=== PATIENT | male | born 1950 | race Caucasian/White ===

== ENCOUNTER 2016-08-07 17:17 | Inpatient (IN) | payer MEDICARE, OTHER ==
[~2016-08-07] VITALS: Ht 167.6 cm; Wt 65.0 kg
[2016-08-07 17:44] LABS: ADD SCAN DIFF NO
[2016-08-07 17:53] LABS: ABNORMAL IP MESSAGE 1; HEMATOCRIT 14.1 % (42.0-52.0); MEAN CORPUSCULAR HEMOGLOBIN 28.9 pg (29.0-33.0); MEAN CORPUSCULAR HGB CONC 29.1 g/dl (32.0-37.0); MEAN CORPUSCULAR VOLUME 99.3 fl (82.0-101.0); MEAN PLATELET VOLUME 10.9 fl (7.4-10.4); PLATELET COUNT 495 10^3/UL (140-415); RED BLOOD COUNT 1.42 10^6/ul (4.70-6.10); RED CELL DISTRIBUTION WIDTH 16.4 % (11.5-14.5); WHITE BLOOD COUNT 15.6 10^3/ul (4.8-10.8)
[2016-08-07 17:56] LABS: HEMOGLOBIN 4.1 g/dl (14.0-18.0)
[2016-08-07] MEDS ORDERED: SOD CHLORIDE 0.9% 250 ML IV ONE (17:56)
[2016-08-07 18:02] LABS: ALBUMIN 2.6 g/dl (3.3-4.9); CHLORIDE 107 mmol/L (97-110); INR 1.3; PROTIME 16.3 Sec (12.2-14.2); PT RATIO 1.3; SODIUM 139 mmol/L (135-144)
[2016-08-07 18:05] LABS: ALANINE AMINOTRANSFERASE 32 IU/L (13-69); ALBUMIN/GLOBULIN RATIO 1.44; ALKALINE PHOSPHATASE 46 IU/L (42-121); ANION GAP 21 (8-16); ASPARTATE AMINO TRANSFERASE 19 IU/L (15-46); BILIRUBIN,INDIRECT 0.2 mg/dl (0-1.1); BILIRUBIN,TOTAL 0.2 mg/dl (0.2-1.3); BLOOD UREA NITROGEN 38 mg/dl (7-20); CARBON DIOXIDE 15 mmol/L (21-31); CREATININE 1.05 mg/dl (0.61-1.24); TOTAL PROTEIN 4.4 g/dl (6.1-8.1)
[2016-08-07 18:06] LABS: CALCIUM 8.4 mg/dl (8.4-10.2); GLUCOSE 267 mg/dl (70-220)
[2016-08-07] MEDS ORDERED: ASPI325T4 PO (18:08)
[2016-08-07 18:20] LABS: TROPONIN-I < 0.012 ng/ml (0.00-0.12)
--- NOTE | 2016-08-07 18:27 | RADRPT ---
PROCEDURE: XR Chest. CLINICAL INDICATION: Difficulty breathing, possible sepsis TECHNIQUE: Single frontal view of the chest was obtained COMPARISON: None FINDINGS: The heart and mediastinum are within normal limits. The lungs are clear. There is no pleural effusion or pneumothorax. IMPRESSION: No acute abnormalities are identified on this single view. RPTAT:AAJJ Arie Neumann Physician Date Time Electronically viewed and signed by Arie Neumann Physician on 08/07/2016 18:26 /
[2016-08-07 18:31] LABS: LYMPHOCYTES # 0.8 10^3/ul (0.8-2.9); MONOCYTE # 0.3 10^3/ul (0.3-0.9); NEUTROPHIL # 14.4 10^3/ul (1.6-7.5); PARTIAL THROMBOPLASTIN TIME 21.5 Sec (25.0-35.0)
[2016-08-07 18:33] LABS: ANISOCYTOSIS 1+
[2016-08-07 18:34] LABS: BURR CELLS 2+; HYPOCHROMASIA 2+; MICROCYTOSIS 1+; OVALOCYTES 1+; PLATELET ESTIMATE PLT APPEAR INCREASED; POIKILOCYTOSIS 2+
[2016-08-07] MEDS ORDERED: OCTREOTIDE 500 MCG in SOD CHLORIDE 0.9% 49 ML IV STA (19:41)
[2016-08-07] MEDS ORDERED: OCTREOTIDE 50 MCG in SOD CHLORIDE 0.9% 25 ML IVPB STA (19:41)
[2016-08-07] MEDS ORDERED: PANTOPRAZOLE 40 MG INJ IV ONE (20:00)
--- NOTE | 2016-08-07 20:52 | ERA ---
ER Documentation Chief Complaint Date/Time DATE: 08/07/16 TIME: 20:47 Chief Complaint SOB FOR THE PAST FEW DAYS WITH BLACK STOOLS. GETTING WORSE. NO CP HPI This is a 65-year-old male who presents to the emergency room for evaluation of generalized weakness and dark stools of this after the past few weeks. This patient states that he has been feeling weak and he has been taking aspirin to help him feel better. The patient states that today he was feeling extremely weak and could not move. He did call 911 was transported to the emergency room for further evaluation. This patient is denying any chest pain but does state he is a short of breath. The patient states that he has not taken any other medicine except for aspirin at home. ROS All systems reviewed and are negative except as per history of present illness. Medications Home Meds Reported Medications Aspirin* (Aspirin*) 325 Mg Tablet, 325 MG PO NEEDED, TAB 08/07/16 Allergies Allergies: Coded Allergies: No Known Allergy (Unverified , 08/07/16) Physical Exam Vitals Vital Signs Date Time Temp Pulse Resp B/P Pulse Ox O2 Delivery O2 Flow Rate FiO2 08/07/16 19:05 97.9 113 20 98/55 97 Non Rebreather 15.0 08/07/16 18:16 113 20 109/56 Non Rebreather 15.0 08/07/16 17:57 Non Rebreather 15 08/07/16 17:50 97.5 118 20 77/55 97 08/07/16 17:40 97.8 113 20 102/66 Non Rebreather 15.0 08/07/16 17:25 116 20 89/55 Non Rebreather 15.0 Physical Exam INITIAL VITAL SIGNS: Reviewed by me GENERAL: The patient is frail-appearing, extremely pale elderly gentleman HEENT: Conjunctival pallor pupils equal, round, and reactive to light. EOMI. There is no scleral icterus. NECK: C-spine is soft and supple, there is no meningismus. There is no cervical lymphadenopathy. LUNGS: Clear to auscultation bilaterally. There are no rales, wheezes or rhonchi. HEART: Tachycardic, no murmurs, clicks, rubs or gallops. ABDOMEN: Soft, non-tender, non-distended. There are bowel sounds in all four quadrants. No rebound or guarding. EXTREMITIES: There is no peripheral cyanosis or edema. No focal swelling or erythema. NEUROLOGICAL: The patient moves all four extremities with 5/5 strength. Cranial nerves II - XII are intact. Normal gait. Alert and oriented SKIN: Extremely pale skin, there is no apparent rash or petechiae. HEME/LYMPHATIC: There is no evidence of excessive bruising or lymphedema. PSYCHIATRIC: The patient does not appear anxious or depressed. Rectal exam: Dark stool, heme positive Result Diagram: 08/07/16172908/07/161729 Results 24 hrs Laboratory Tests Test 08/07/16 17:30 White Blood Count 15.610^3/ul Red Blood Count 1.4210^6/ul Hemoglobin 4.1g/dl Hematocrit 14.1% Mean Corpuscular Volume 99.3fl Mean Corpuscular Hemoglobin 28.9pg Mean Corpuscular Hemoglobin Concent 29.1g/dl Red Cell Distribution Width 16.4% Platelet Count 87628^3/UL Mean Platelet Volume 10.9fl Neutrophils % 92.0% Band Neutrophils % 1.0% Lymphocytes % 5.0% Monocytes % 2.0% Neutrophils # 14.410^3/ul Lymphocytes # 0.810^3/ul Monocytes # 0.310^3/ul Platelet Estimate PLT APPEAR INCREASED Large Platelets FEW Hypochromasia 2+ Poikilocytosis 2+ Anisocytosis 1+ Microcytosis 1+ Macrocytosis 1+ Ovalocytes 1+ Prothrombin Time 16.3Sec Prothrombin Time Ratio 1.3 INR International Normalized Ratio 1.30 Activated Partial Thromboplast Time 21.5Sec Sodium Level 139mmol/L Potassium Level 4.0mmol/L Chloride Level 107mmol/L Carbon Dioxide Level 15mmol/L Anion Gap 21 Blood Urea Nitrogen 38mg/dl Creatinine 1.05mg/dl Glucose Level 267mg/dl Lactic Acid Level 9.5mmol/L Calcium Level 8.4mg/dl Total Bilirubin 0.2mg/dl Direct Bilirubin 0.00mg/dl Indirect Bilirubin 0.2mg/dl Aspartate Amino Transf (AST/SGOT) 19IU/L Alanine Aminotransferase (ALT/SGPT) 32IU/L Alkaline Phosphatase 46IU/L Troponin I < 0.012ng/ml Total Protein 4.4g/dl Albumin 2.6g/dl Globulin 1.80g/dl Albumin/Globulin Ratio 1.44 Current Medications Medications (Trade) Dose Ordered Sig/Breanna Route PRN Reason Start Time Stop Time Status Last Admin Dose Admin Sodium Chloride (NS) 250 ml @ 0 mls/hr Q0M ONCE IV 08/07/16 17:56 08/07/16 17:57 DC Pantoprazole 80 mg 80 mg ONCE ONCE IV 08/07/16 20:00 08/07/16 20:01 DC 08/07/16 20:06 Octreotide Acetate 50 mcg/ Sodium Chloride 26 ml @ 100 mls/hr Q16M STAT IVPB 08/07/16 19:41 08/07/16 19:56 DC 08/07/16 20:38 Octreotide Acetate/Sodium Chloride (Sandostatin/NS) 50 ml @ 5 mls/hr ONCE STAT IV 08/07/16 19:41 08/08/16 05:40 08/07/16 20:37 Procedures/MDM EKG: Rate/Rhythm: Sinus tachycardia QRS, ST, T-waves: [No changes consistent w/ acute ischemia] Impression: [No evidence of ischemia or arrhythmia] Chest X-ray 1V Interpreted by me: Soft Tissue: No acute abnormalities Bones: No acute abnormalities Mediastinum/Cardiac Silhouette/Lungs: [No acute abnormalities] This 65-year-old male presents to the emergency room for evaluation of generalized weakness. When I evaluated this patient he was extremely pale, tachycardic, and was in mild respiratory distress. We immediately established to large-bore IVs in this patient in to lab work including a type and screen. This patient's hemoglobin came back at 4.1 and on his rectal exam this patient did have dark stool which was heme positive. This patient also had a lactic acid greater than 9. The patient has not been hypotensive. He was given 2 L of IV normal saline immediately. The patient was transfused 4 units of packed red blood cells in the emergency room. He was given 40 mg of Protonix, and was started on a octreotide drip after an octreotide bolus was given. Upon my re- evaluation of this patient after 2 units of blood this patient's skin color has returned, his heart rate is 84 bpm and he states he is feeling much better. This patient will be placed in the ICU at this time under the care of her panel physician, Dr. fletcher for evaluation with GI consult. I advised the patient that his aspirin is likely contributing to his symptoms and advised him to never take aspirin if he has dark stools and he verbalized understanding. Critical Care: Excluding all billable procedures Time: 38 minutes Treatments/Evaluations: Close monitoring and treatment of unstable vital signs, cardiorespiratory, and neurologic status, while maintaining tight balance of fluid, respiratory, and cardiac interventions. Departure Diagnosis: Primary Impression: GI bleed Additional Impressions: Symptomatic anemia Lactic acidosis Shortness of breath Condition: Critical HERMANN WHITEHEAD DO August 07, 2016 20:52
[2016-08-07] MEDS ORDERED: INSULIN ASPART [NOVOLOG] 3 ML PEN SC STA (21:16)
[2016-08-07] MEDS ORDERED: ONDANSETRON 4 MG INJ IV PRN (21:30)
--- NOTE | 2016-08-07 21:57 | HP ---
Date/Time of Note Date/Time of Note DATE: 08/07/16 TIME: 21:36 Assessment/Plan Assessment/Plan Assessment/Plan 1. GI Bleed - admit to ICU - Protonix/Octreotide gtt - blood transfusion - GI consult 2. Mild DKA - insulin with DKA protocol 3. AG Metabolic Acidosis - check ABG 4. Severe Lactic Acidosis - IVF - Trend lactate HPI/ROS Admit Date/Time Admit Date/Time Hx of Present Illness This is a 65 yo male who presented to ER c/o generalized weakness that has been progressively getting worse for past few days. Also reported dizziness/ lightheadedness. In ER, he was found to have a hgb of 4. He reported dark stool. Denied hematemesis or BRBPR. BP was as low as 77/55 and was tachycardic. Lab also showed a lactate of 9.5, hco3 15, BUN 38, glu 267, AG 21. . Exam/Review of Systems Vital Signs Vitals Vital Signs Date Time Temp Pulse Resp B/P Pulse Ox O2 Delivery O2 Flow Rate FiO2 08/07/16 20:20 98.1 95 19 132/74 100 Nasal Cannula 4.0 Labs Result Diagram: 08/07/16 1730 08/07/16 1730 Medications Medications Current Medications Pantoprazole 80 mg/Sodium Chloride 100 ml @ 10 mls/hr Q10H IV ; Start 08/07/16 at 21:07; Status UNV Octreotide Acetate/Sodium Chloride (Sandostatin/NS) 50 ml @ 2.5 mls/hr Q20H IV ; Start 08/07/16 at 21:07; Status UNV Ondansetron HCl (Zofran Inj) 4 mg Q6 PRN IV N/V; Start 08/07/16 at 21:30; Status UNV Insulin Aspart (Novolog Insulin Pen) NOVOLOG *MODERATE* ALGORI... Q4 SC ; Start 08/08/16 at 01:00; Status UNV Miscellaneous Information HYPOGLYCEMIA PROTOCOL w... ONCE ONCE XX ; Start 08/07 at 21:30; Stop 08/07/16 at 21:31; Status UNV Sodium Chloride (NS) 1,000 ml @ 125 mls/hr Q8H IV ; Start 08/07/16 at 22:00; Status UNV MARCELL HARVEY MD August 07, 2016 21:46
[2016-08-07] MEDS ORDERED: GLUCAGON 1 MG INJ IM PRN (22:00)
[2016-08-07] MEDS ORDERED: DEXTROSE 50% 50 ML SYRINGE IV PRN ×2 (22:00)
[2016-08-07] MEDS ORDERED: GLUCOSE GEL 15 GRAM TUBE BUCCAL PRN (22:00)
[2016-08-07] MEDS ORDERED: GLUCOSE GEL 15 GRAM TUBE PO PRN ×2 (22:00)
[2016-08-07 22:16] LABS: Allen Test ACCEPTAB; Arterial Base Excess -3.5 mmol/L (-3.0-3); Arterial COHb 0.3 % (0.0-3.0); Arterial Fraction of Oxyhgb 97.4 % (93.0-99.0); Arterial HCO3 20.4 mmol/L (22.0-26.0); Arterial MetHb 0.6 % (0.0-1.5); Arterial Total Hemglobin 8.9 g/dl (12.0-18.0); MODE CANNULA
[2016-08-07] MEDS: OCTREOTIDE 500 MCG in SOD CHLORIDE 0.9% 49 ML IV SCH (22:49)
[2016-08-07] MEDS: PANTOPRAZOLE IV 80 MG in SOD CHLORIDE 0.9% 100 ML IV SCH (22:52)
[2016-08-07] MEDS: SOD CHLORIDE 0.9% 1,000 ML IV SCH (22:57)
[2016-08-07] MEDS: INSULIN ASPART [NOVOLOG] 3 ML PEN SC SCH (23:12)
[2016-08-07 23:30] LABS: HEMOGLOBIN 8.5 g/dl (14.0-18.0)
[2016-08-08] VITALS (11 sets, daily range): BP systolic 111–127; BP diastolic 59–69; PULSE 59–93; RESP 16–20; TEMP 98.6; Ht 167.6 cm; Wt 65.0 kg
[2016-08-08] MEDS: INSULIN ASPART [NOVOLOG] 3 ML PEN SC SCH ×6 (01:00→21:00)
[2016-08-08 02:50] LABS: ADD SCAN DIFF NO
[2016-08-08 02:53] LABS: ABNORMAL IP MESSAGE 1; BASOPHILS % 0.1 % (0.0-2.0); HEMATOCRIT 31.6 % (42.0-52.0); HEMOGLOBIN 10.4 g/dl (14.0-18.0); LYMPHOCYTES % 4.9 % (15.0-51.0); MEAN CORPUSCULAR HEMOGLOBIN 29.7 pg (29.0-33.0); MEAN CORPUSCULAR HGB CONC 32.9 g/dl (32.0-37.0); MEAN CORPUSCULAR VOLUME 90.3 fl (82.0-101.0); MEAN PLATELET VOLUME 10.6 fl (7.4-10.4); MONOCYTE # 1.8 10^3/ul (0.3-0.9); MONOCYTES % 8.7 % (0.0-11.0); NEUTROPHIL # 17.9 10^3/ul (1.6-7.5); NEUTROPHILS % 84.7 % (39.0-77.0); NUCLEATED RED BLOOD CELLS # 0.1 10^3/ul (0.0-0.0); NUCLEATED RED BLOOD CELLS% 0.3 /100WBC (0.0-0.0); PLATELET COUNT 298 10^3/UL (140-415); RED CELL DISTRIBUTION WIDTH 14.9 % (11.5-14.5); WHITE BLOOD COUNT 21.2 10^3/ul (4.8-10.8)
[2016-08-08] MEDS: SOD CHLORIDE 0.9% 1,000 ML IV SCH ×4 (06:11→23:17)
[2016-08-08] MEDS: PANTOPRAZOLE IV 80 MG in SOD CHLORIDE 0.9% 100 ML IV SCH ×2 (06:12→17:18)
[2016-08-08 08:14] LABS: ADD SCAN DIFF NO
[2016-08-08 08:21] LABS: BASOPHILS % 0.2 % (0.0-2.0); EOSINOPHILS % 0.1 % (0.0-7.0); HEMATOCRIT 25.9 % (42.0-52.0); HEMOGLOBIN 8.9 g/dl (14.0-18.0); LYMPHOCYTES % 5.8 % (15.0-51.0); MEAN CORPUSCULAR HEMOGLOBIN 30.2 pg (29.0-33.0); MEAN CORPUSCULAR HGB CONC 34.4 g/dl (32.0-37.0); MEAN CORPUSCULAR VOLUME 87.8 fl (82.0-101.0); MEAN PLATELET VOLUME 10.1 fl (7.4-10.4); MONOCYTE # 1.5 10^3/ul (0.3-0.9); MONOCYTES % 8.4 % (0.0-11.0); NEUTROPHIL # 14.6 10^3/ul (1.6-7.5); NEUTROPHILS % 83.9 % (39.0-77.0); NUCLEATED RED BLOOD CELLS% 0.2 /100WBC (0.0-0.0); PLATELET COUNT 319 10^3/UL (140-415); RED BLOOD COUNT 2.95 10^6/ul (4.70-6.10); RED CELL DISTRIBUTION WIDTH 15.2 % (11.5-14.5); WHITE BLOOD COUNT 17.4 10^3/ul (4.8-10.8)
[2016-08-08 08:39] LABS: ALBUMIN 2.2 g/dl (3.3-4.9)
[2016-08-08 08:40] LABS: POTASSIUM 4.1 mmol/L (3.5-5.1)
[2016-08-08 08:42] LABS: ALBUMIN/GLOBULIN RATIO 1.15; BILIRUBIN,INDIRECT 0.8 mg/dl (0-1.1); BILIRUBIN,TOTAL 0.8 mg/dl (0.2-1.3); CREATININE 0.91 mg/dl (0.61-1.24); TOTAL PROTEIN 4.1 g/dl (6.1-8.1)
[2016-08-08 08:43] LABS: CALCIUM 7.2 mg/dl (8.4-10.2)
[2016-08-08] MEDS: OCTREOTIDE 500 MCG in SOD CHLORIDE 0.9% 49 ML IV SCH (17:18)
--- NOTE | 2016-08-08 17:20 | PN ---
Date/Time of Note Date/Time of Note DATE: 08/08/16 TIME: 17:16 Assessment/Plan VTE Prophylaxis VTE Prophylaxis Intervention: contraindicated VTE Contraindication Reason: bleeding Lines/Catheters IV Catheter Type (from Nrsg): Peripheral IV Urinary Cath still in place: Yes Reason Cath still needed: other (indicate) Assessment/Plan Chief Complaint/Hosp Course Subjective: 65-year-old gentleman with black stools for maybe 3 weeks. Takes aspirin long-term for generalized pain denies alcohol. No syncope. No hematuria hematemesis abdominal pain or weight loss. Objective: Vital signs stable improved sinus rhythm sinus tach PE No adenopathy JVD probable pallor Reg, no m/r/g Clear bilaterally Bs+ nt nd no R/R/G No edema A/P 1. Shock. Hypovolemic/hemorrhagic? Stable transfused. Follow H&H 2. Acute GI bleed probable upper. EGD when stable; colonoscopy at some point 3. Metabolic acidosis 4. Hypoalbuminemia? Problems: Exam/Review of Systems Vital Signs Vitals Vital Signs Date Time Temp Pulse Resp B/P Pulse Ox O2 Delivery O2 Flow Rate FiO2 08/08/16 16:23 67 08/08/16 16:14 98.8 18 118/69 99 08/08/16 03:50 Room Air 08/08/16 02:55 2.0 08/07/16 21:00 28 Intake and Output 08/07/16 08/07/16 08/08/16 15:00 23:00 07:00 Intake Total 2520 ml Output Total 400 ml Balance 2120 ml Results Result Diagram: 08/08/16 0655 08/08/16 0655 Results 24 hrs Laboratory Tests Test 08/07/16 17:30 08/07/16 20:00 08/07/16 20:30 08/07/16 21:18 White Blood Count 15.6 H Red Blood Count 1.42 L Hemoglobin 4.1 *L Hematocrit 14.1 L Mean Corpuscular Volume 99.3 Mean Corpuscular Hemoglobin 28.9 L Mean Corpuscular Hemoglobin Concent 29.1 L Red Cell Distribution Width 16.4 H Platelet Count 495 H Mean Platelet Volume 10.9 H Neutrophils % 92.0 H Band Neutrophils % 1.0 Lymphocytes % 5.0 L Monocytes % 2.0 Neutrophils # 14.4 H Lymphocytes # 0.8 Monocytes # 0.3 Platelet Estimate PLT APPEAR INCREASED Large Platelets FEW Hypochromasia 2+ Poikilocytosis 2+ Anisocytosis 1+ Microcytosis 1+ Macrocytosis 1+ Ovalocytes 1+ Prothrombin Time 16.3 H Prothrombin Time Ratio 1.3 INR International Normalized Ratio 1.30 Activated Partial Thromboplast Time 21.5 L Sodium Level 139 Potassium Level 4.0 Chloride Level 107 Carbon Dioxide Level 15 L Anion Gap 21 H Blood Urea Nitrogen 38 H Creatinine 1.05 Glucose Level 267 H Lactic Acid Level 9.5 *H 2.3 H Calcium Level 8.4 Total Bilirubin 0.2 Direct Bilirubin 0.00 Indirect Bilirubin 0.2 Aspartate Amino Transf (AST/SGOT) 19 Alanine Aminotransferase (ALT/SGPT) 32 Alkaline Phosphatase 46 Troponin I < 0.012 Total Protein 4.4 L Albumin 2.6 L Globulin 1.80 Albumin/Globulin Ratio 1.44 Salicylates Level 2.6 L Blood Gas Specimen Source Blood arterial Arterial Blood Date Drawn 08/07/2016 10:06:44 PM Arterial Blood pH (Temp corrected) 7.422 Arterial Blood pCO2 (Temp correct) 32.0 L Arterial Blood pO2 (Temp corrected) 164.5 H Arterial Blood HCO3 20.4 L Arterial Blood Base Excess -3.5 L Arterial Blood Oxygen Saturation 98.3 H Fredrick Test ACCEPTAB Arterial Blood Gas Puncture Site Left Radial Arterial Blood Carboxyhemoglobin 0.3 Arterial Blood Methemoglobin 0.6 Oxyhemoglobin Percent 97.4 Total Hemoglobin 8.9 L Blood Gas Temperature 37.0 Blood Gas Actual Respiration Rate 16 Blood Gas Modality CANNULA FiO2 28.0 Blood Gas Critical Value Read Back Ana Laura LARA Blood Gas Notified Whom BL Blood Gas Notified Time 08/07/2016 10:15:26 PM Test 08/07/16 22:30 08/07/16 23:08 08/07/16 23:10 08/08/16 01:28 Hemoglobin 8.5 #L Hematocrit 26.0 #L Bedside Glucose 119 126 Lactic Acid Level 1.1 Test 08/08/16 02:37 08/08/16 05:05 08/08/16 06:55 08/08/16 09:20 White Blood Count 21.2 #H 17.4 H Red Blood Count 3.50 #L 2.95 L Hemoglobin 10.4 #L 8.9 L Hematocrit 31.6 #L 25.9 L Mean Corpuscular Volume 90.3 87.8 Mean Corpuscular Hemoglobin 29.7 30.2 Mean Corpuscular Hemoglobin Concent 32.9 34.4 Red Cell Distribution Width 14.9 H 15.2 H Platelet Count 298 # 319 Mean Platelet Volume 10.6 H 10.1 Neutrophils % 84.7 H 83.9 H Lymphocytes % 4.9 L 5.8 L Monocytes % 8.7 8.4 Eosinophils % 0.0 0.1 Basophils % 0.1 0.2 Nucleated Red Blood Cells % 0.3 H 0.2 H Neutrophils # 17.9 H 14.6 H Lymphocytes # 1.0 1.0 Monocytes # 1.8 H 1.5 H Eosinophils # 0.0 0.0 Basophils # 0.0 0.0 Nucleated Red Blood Cells # 0.1 H 0.0 Bedside Glucose 111 130 Sodium Level 139 Potassium Level 4.1 Chloride Level 113 H Carbon Dioxide Level 21 Anion Gap 9 # Blood Urea Nitrogen 32 H Creatinine 0.91 Glucose Level 108 # Hemoglobin A1c 4.9 Calcium Level 7.2 L Total Bilirubin 0.8 Direct Bilirubin 0.00 Indirect Bilirubin 0.8 Aspartate Amino Transf (AST/SGOT) 21 Alanine Aminotransferase (ALT/SGPT) 37 Alkaline Phosphatase 43 Total Protein 4.1 L Albumin 2.2 L Globulin 1.90 Albumin/Globulin Ratio 1.15 Test 08/08/16 13:30 Bedside Glucose 120 Medications Medications Current Medications Pantoprazole 80 mg/Sodium Chloride 100 ml @ 10 mls/hr Q10H IV Last administered on 08/08/16 06:12; Admin Dose 10 MLS/HR; Start 08/07/16 at 21:07 Octreotide Acetate/Sodium Chloride (Sandostatin/NS) 50 ml @ 2.5 mls/hr Q20H IV Last administered on 08/07/16 22:49; Admin Dose 2.5 MLS/HR; Start 08/07/16 at 21:07 Ondansetron HCl (Zofran Inj) 4 mg Q6 PRN IV N/V; Start 08/07/16 at 21:30 Insulin Aspart NOVOLOG *MODERATE* ALGORI... Q4 SC ; Start 08/08/16 at 01:00 Sodium Chloride (NS) 1,000 ml @ 100 mls/hr Q10H IV Last administered on 5/13/ 17at 06:11; Admin Dose 125 MLS/HR; Start 08/07/16 at 22:00 Miscellaneous Information 1 ea NOTE XX ; Start 08/07/16 at 22:00 Glucose (Glutose) 15 gm Q15M PRN PO DECREASED GLUCOSE; Start 08/07/16 at 22:00 Glucose (Glutose) 22.5 gm Q15M PRN PO DECREASED GLUCOSE; Start 08/07/16 at 22: 00 Dextrose (D50w Syringe) 25 ml Q15M PRN IV DECREASED GLUCOSE; Start 08/07/16 at 22:00 Dextrose (D50w Syringe) 50 ml Q15M PRN IV DECREASED GLUCOSE; Start 08/07/16 at 22:00 Glucagon (Glucagen) 1 mg Q15M PRN IM DECREASED GLUCOSE; Start 08/07/16 at 22:00 Glucose (Glutose) 15 gm Q15M PRN BUCCAL DECREASED GLUCOSE; Start 08/07/16 at 22 :00 CARLOS MEMBRENO MD August 08, 2016 17:20
[2016-08-08 21:15] LABS: HEMATOCRIT 24.7 % (42.0-52.0); HEMOGLOBIN 8.1 g/dl (14.0-18.0)
[2016-08-09] VITALS (12 sets, daily range): BP systolic 108–137; BP diastolic 59–78; PULSE 65–84; RESP 16–20
[2016-08-09] MEDS: INSULIN ASPART [NOVOLOG] 3 ML PEN SC SCH ×6 (01:00→21:00)
[2016-08-09] MEDS: PANTOPRAZOLE IV 80 MG in SOD CHLORIDE 0.9% 100 ML IV SCH ×3 (03:30→23:36)
[2016-08-09] MEDS: SOD CHLORIDE 0.9% 1,000 ML IV SCH ×2 (05:38→23:35)
[2016-08-09 07:32] LABS: ADD SCAN DIFF NO
[2016-08-09 07:39] LABS: BASOPHILS % 0.2 % (0.0-2.0); EOSINOPHILS # 0.1 10^3/ul (0.0-0.5); EOSINOPHILS % 0.4 % (0.0-7.0); HEMATOCRIT 25.5 % (42.0-52.0); HEMOGLOBIN 8.6 g/dl (14.0-18.0); LYMPHOCYTES # 0.8 10^3/ul (0.8-2.9); LYMPHOCYTES % 5.6 % (15.0-51.0); MEAN CORPUSCULAR HEMOGLOBIN 30.6 pg (29.0-33.0); MEAN CORPUSCULAR HGB CONC 33.7 g/dl (32.0-37.0); MEAN CORPUSCULAR VOLUME 90.7 fl (82.0-101.0); MEAN PLATELET VOLUME 10.2 fl (7.4-10.4); MONOCYTE # 1.1 10^3/ul (0.3-0.9); MONOCYTES % 7.5 % (0.0-11.0); NEUTROPHIL # 12.2 10^3/ul (1.6-7.5); NEUTROPHILS % 85.4 % (39.0-77.0); PLATELET COUNT 277 10^3/UL (140-415); RED BLOOD COUNT 2.81 10^6/ul (4.70-6.10); RED CELL DISTRIBUTION WIDTH 15.8 % (11.5-14.5); WHITE BLOOD COUNT 14.3 10^3/ul (4.8-10.8)
[2016-08-09 07:56] LABS: ALBUMIN 2.4 g/dl (3.3-4.9); ALBUMIN/GLOBULIN RATIO 1.14; BILIRUBIN,INDIRECT 0.4 mg/dl (0-1.1); BILIRUBIN,TOTAL 0.4 mg/dl (0.2-1.3); CALCIUM 7.4 mg/dl (8.4-10.2); CREATININE 0.83 mg/dl (0.61-1.24); PHOSPHORUS 3.2 mg/dl (2.5-4.9); POTASSIUM 4.3 mmol/L (3.5-5.1); TOTAL PROTEIN 4.5 g/dl (6.1-8.1)
[2016-08-09 08:02] LABS: INR 1.14; PROTIME 14.6 Sec (12.2-14.2); PT RATIO 1.1
[2016-08-09 08:25] LABS: THYROID STIMULATING HORMONE 0.83 MIU/L (0.465-4.680)
[2016-08-09] MEDS ORDERED: BARIUM SULF 2% 450 ML BTL (BERRY SMOOTHIE) PO ONE (13:00)
--- NOTE | 2016-08-09 13:20 | CONS ---
Date/Time of Note Date/Time of Note DATE: 08/09/16 TIME: 13:09 Assessment/Plan Assessment/Plan Additional Assessment/Plan Acute anemia Evaluate GI bleed versus chronic iron deficiency vs other etiology Stool OB, if positive strongly recommend EGD Monitor H&H every 8 hours, transfuse 2 units for hemoglobin less than 7.[address] abdomen in process Continue PPI and Octreotide drips EGD tomorrow with Dr. Hewitt, pt advised of R/B/A to procedure and provide informed consent to proceed Further recommendations depend on clinical course Patient seen in collaboration with Dr. Hewitt Consultation Date/Type/Reason Admit Date/Time Date of Consultation: August 09, 2016 Type of Consultation: Gastroenterology Reason for Consultation Acute anemia Hx of Present Illness Mr. Jose J Frye is a 65-year-old male who presented to the emergency room secondary to worsening weakness and melena stools. Patient states symptoms started 5-6 days ago and have progressively gotten worse. Patient denies nausea , vomiting, fever, chills, hematochezia, sick contacts, travel outside the [place], and previous episode. Patient denies any significant medical history. Patient reports chronic Tylenol use for everyday aches and pains but states he uses it on a as needed basis. Patient has never had colonoscopy and denies family history of colon cancer or colon polyps. Social History Smoking Status: Former smoker Exam/Review of Systems Vital Signs Vitals Vital Signs Date Time Temp Pulse Resp B/P Pulse Ox O2 Delivery O2 Flow Rate FiO2 08/09/16 12:11 84 08/09/16 12:01 98.9 17 108/61 99 08/08/16 03:50 Room Air 08/08/16 02:55 2.0 08/07/16 21:00 28 Intake and Output 08/08/16 08/08/16 08/09/16 15:00 23:00 07:00 Intake Total 1835 ml 1215 ml Output Total 850 ml 800 ml Balance 985 ml 415 ml Exam Constitutional: alert, oriented, well developed Psych: nl mood/affect Head: normocephalic Eyes: EOMI, nl conjunctiva, nl lids ENMT: nl external ears & nose, nl lips & teeth, nl nasal mucosa & septum Respiratory: clear to auscultation, normal air movement Cardiovascular: regular rate and rhythm Gastrointestinal: soft, non-tender Musculoskeletal: nl extremities to inspection Neurological: [employer] ADMINISTRATOR II-XII intact Results Result Diagram: 08/09/16 0706 08/09/16 0706 Results 24 hrs Laboratory Tests Test 08/08/16 13:30 08/08/16 20:45 08/08/16 21:24 08/09/16 01:17 Bedside Glucose 120 104 112 Hemoglobin 8.1 L Hematocrit 24.7 L Test 08/09/16 05:37 08/09/16 07:06 08/09/16 08:29 Bedside Glucose 105 112 White Blood Count 14.3 H Red Blood Count 2.81 L Hemoglobin 8.6 L Hematocrit 25.5 L Mean Corpuscular Volume 90.7 Mean Corpuscular Hemoglobin 30.6 Mean Corpuscular Hemoglobin Concent 33.7 Red Cell Distribution Width 15.8 H Platelet Count 277 Mean Platelet Volume 10.2 Neutrophils % 85.4 H Lymphocytes % 5.6 L Monocytes % 7.5 Eosinophils % 0.4 Basophils % 0.2 Nucleated Red Blood Cells % 0.0 Neutrophils # 12.2 H Lymphocytes # 0.8 Monocytes # 1.1 H Eosinophils # 0.1 Basophils # 0.0 Nucleated Red Blood Cells # 0.0 Prothrombin Time 14.6 H Prothrombin Time Ratio 1.1 INR International Normalized Ratio 1.14 Sodium Level 135 Potassium Level 4.3 Chloride Level 112 H Carbon Dioxide Level 23 Anion Gap 4 L Blood Urea Nitrogen 15 # Creatinine 0.83 Glucose Level 112 Calcium Level 7.4 L Phosphorus Level 3.2 Magnesium Level 2.0 Total Bilirubin 0.4 Direct Bilirubin 0.00 Indirect Bilirubin 0.4 Aspartate Amino Transf (AST/SGOT) 19 Alanine Aminotransferase (ALT/SGPT) 37 Alkaline Phosphatase 52 Total Protein 4.5 L Albumin 2.4 L Globulin 2.10 Albumin/Globulin Ratio 1.14 Lipase 321 H Thyroid Stimulating Hormone (TSH) 0.830 Medications Medications Current Medications Pantoprazole 80 mg/Sodium Chloride 100 ml @ 10 mls/hr Q10H IV Last administered on 08/09/16 03:30; Admin Dose 10 MLS/HR; Start 08/07/16 at 21:07 Octreotide Acetate/Sodium Chloride (Sandostatin/NS) 50 ml @ 2.5 mls/hr Q20H IV Last administered on 08/08/16 17:18; Admin Dose 2.5 MLS/HR; Start 08/07/16 at 21:07 Ondansetron HCl (Zofran Inj) 4 mg Q6 PRN IV N/V; Start 08/07/16 at 21:30 Insulin Aspart NOVOLOG *MODERATE* ALGORI... Q4 SC ; Start 08/08/16 at 01:00 Sodium Chloride (NS) 1,000 ml @ 100 mls/hr Q10H IV Last administered on t 05:38; Admin Dose 100 MLS/HR; Start 08/07/16 at 22:00 Miscellaneous Information 1 ea NOTE XX ; Start 08/07/16 at 22:00 Glucose (Glutose) 15 gm Q15M PRN PO DECREASED GLUCOSE; Start 08/07/16 at 22:00 Glucose (Glutose) 22.5 gm Q15M PRN PO DECREASED GLUCOSE; Start 08/07/16 at 22: 00 Dextrose (D50w Syringe) 25 ml Q15M PRN IV DECREASED GLUCOSE; Start 08/07/16 at 22:00 Dextrose (D50w Syringe) 50 ml Q15M PRN IV DECREASED GLUCOSE; Start 08/07/16 at 22:00 Glucagon (Glucagen) 1 mg Q15M PRN IM DECREASED GLUCOSE; Start 08/07/16 at 22:00 Glucose (Glutose) 15 gm Q15M PRN BUCCAL DECREASED GLUCOSE; Start 08/07/16 at 22 :00 GREGORY GRIGSBY August 09, 2016 13:19
[2016-08-09] MEDS: OCTREOTIDE 500 MCG in SOD CHLORIDE 0.9% 49 ML IV SCH (13:25)
--- NOTE | 2016-08-09 15:52 | PN ---
Date/Time of Note Date/Time of Note DATE: 08/09/16 TIME: 15:50 Assessment/Plan VTE Prophylaxis VTE Prophylaxis Intervention: contraindicated VTE Contraindication Reason: bleeding Lines/Catheters IV Catheter Type (from Nrsg): Peripheral IV Urinary Cath still in place: Yes Reason Cath still needed: urinary retention Assessment/Plan Chief Complaint/Hosp Course S: 08/08:65-yr M w black stools for maybe 3 wks. On asa long-term for pain; denies alcohol. No syncope. No hematuria hematemesis abd pain or wt loss. 08/09: stable O: Vss SR PE No JVD; probable pallor Reg, no m/r/g Ctab Bs+ nt nd no R/R/G No edema A/P 1. Shock. Hypovolemic/hemorrhagic? Stable transfused. Follow H&H 2. Acute GI bleed probable upper. EGD 08/10; colonoscopy at some point 3. Metabolic acidosis 4. Hypoalbuminemia? Problems: Exam/Review of Systems Vital Signs Vitals Vital Signs Date Time Temp Pulse Resp B/P Pulse Ox O2 Delivery O2 Flow Rate FiO2 08/09/16 12:11 84 08/09/16 12:01 98.9 17 108/61 99 08/08/16 03:50 Room Air 08/08/16 02:55 2.0 08/07/16 21:00 28 Intake and Output 08/08/16 08/08/16 08/09/16 15:00 23:00 07:00 Intake Total 1835 ml 1215 ml Output Total 850 ml 800 ml Balance 985 ml 415 ml Results Result Diagram: 08/09/16 0706 08/09/16 0706 Results 24 hrs Laboratory Tests Test 08/08/16 20:45 08/08/16 21:24 08/09/16 01:17 08/09/16 05:37 Hemoglobin 8.1 L Hematocrit 24.7 L Bedside Glucose 104 112 105 Test 08/09/16 07:06 08/09/16 08:29 08/09/16 14:36 White Blood Count 14.3 H Red Blood Count 2.81 L Hemoglobin 8.6 L Hematocrit 25.5 L Mean Corpuscular Volume 90.7 Mean Corpuscular Hemoglobin 30.6 Mean Corpuscular Hemoglobin Concent 33.7 Red Cell Distribution Width 15.8 H Platelet Count 277 Mean Platelet Volume 10.2 Neutrophils % 85.4 H Lymphocytes % 5.6 L Monocytes % 7.5 Eosinophils % 0.4 Basophils % 0.2 Nucleated Red Blood Cells % 0.0 Neutrophils # 12.2 H Lymphocytes # 0.8 Monocytes # 1.1 H Eosinophils # 0.1 Basophils # 0.0 Nucleated Red Blood Cells # 0.0 Prothrombin Time 14.6 H Prothrombin Time Ratio 1.1 INR International Normalized Ratio 1.14 Sodium Level 135 Potassium Level 4.3 Chloride Level 112 H Carbon Dioxide Level 23 Anion Gap 4 L Blood Urea Nitrogen 15 # Creatinine 0.83 Glucose Level 112 Calcium Level 7.4 L Phosphorus Level 3.2 Magnesium Level 2.0 Total Bilirubin 0.4 Direct Bilirubin 0.00 Indirect Bilirubin 0.4 Aspartate Amino Transf (AST/SGOT) 19 Alanine Aminotransferase (ALT/SGPT) 37 Alkaline Phosphatase 52 Total Protein 4.5 L Albumin 2.4 L Globulin 2.10 Albumin/Globulin Ratio 1.14 Lipase 321 H Thyroid Stimulating Hormone (TSH) 0.830 Bedside Glucose 112 100 Medications Medications Current Medications Pantoprazole 80 mg/Sodium Chloride 100 ml @ 10 mls/hr Q10H IV Last administered on 08/09/16 13:25; Admin Dose 10 MLS/HR; Start 08/07/16 at 21:07 Octreotide Acetate/Sodium Chloride (Sandostatin/NS) 50 ml @ 2.5 mls/hr Q20H IV Last administered on 08/09/16 13:25; Admin Dose 2.5 MLS/HR; Start 08/07/16 at 21:07 Ondansetron HCl (Zofran Inj) 4 mg Q6 PRN IV N/V; Start 08/07/16 at 21:30 Insulin Aspart NOVOLOG *MODERATE* ALGORI... Q4 SC ; Start 08/08/16 at 01:00 Sodium Chloride (NS) 1,000 ml @ 100 mls/hr Q10H IV Last administered on 05:38; Admin Dose 100 MLS/HR; Start 08/07/16 at 22:00 Miscellaneous Information 1 ea NOTE XX ; Start 08/07/16 at 22:00 Glucose (Glutose) 15 gm Q15M PRN PO DECREASED GLUCOSE; Start 08/07/16 at 22:00 Glucose (Glutose) 22.5 gm Q15M PRN PO DECREASED GLUCOSE; Start 08/07/16 at 22: 00 Dextrose (D50w Syringe) 25 ml Q15M PRN IV DECREASED GLUCOSE; Start 08/07/16 at 22:00 Dextrose (D50w Syringe) 50 ml Q15M PRN IV DECREASED GLUCOSE; Start 08/07/16 at 22:00 Glucagon (Glucagen) 1 mg Q15M PRN IM DECREASED GLUCOSE; Start 08/07/16 at 22:00 Glucose (Glutose) 15 gm Q15M PRN BUCCAL DECREASED GLUCOSE; Start 08/07/16 at 22 :00 CARLOS MEMBRENO MD August 09, 2016 15:52
--- NOTE | 2016-08-09 17:14 | RADRPT ---
PROCEDURE: CT abdomen and pelvis without contrast. CLINICAL INDICATION: Abdominal pain. TECHNIQUE: CT scan of the abdomen and pelvis without contrast was performed on a multi-slice CT [facility] . Oral contrast was also administered. Sagittal and coronal reformatted images were obtaine d from the axial source images. One or more of the following dose reduction techniques were used: - Automated exposure control. - Adjustment of the mA and/or kV according to patient size. - Use of iterative reconstruction technique. DLP 400.1 mGycm. CTDIvol 7.5 mGy COMPARISON: None FINDINGS: There are trace bilateral layering pleural effusions. There is limited evaluation of the solid visc era from the lack of IV contrast. The kidneys are symmetric bilaterally with no evidence of renal or ureteral calculi. There is no hy dronephrosis or perinephric stranding. There is normal density of the liver with no gross focal lesion or biliary ductal dilatation. The gallbladder is unremarkable without inflammation. The spleen is unremarkable without mass. The adrenal glands are within normal limits without mass. The pancreas is unremarkable without focal lesion or surrounding inflammatory changes. There is no bowel obstruction or focal bowel inflammation. The appendix is unremarkable. There is a moderately fecal filled colon. There is no free air or free fluid. There are no enlarged lymph nod es. There is aortic atherosclerosis without aneurysmal dilatation. Degenerative changes are seen in t he lumbar spine with no acute osseous abnormality. The prostate is moderately enlarged. Goldberg catheter is seen in the bladder which is mostly collapse d. There are trace bilateral fat containing inguinal hernias present. IMPRESSION: No evidence of renal or ureteral calculi or hydronephrosis. No evidence of bowel obstruction or inflammation. There is a moderately fecal filled colon. Trace bilateral layering pleural effusions are present. Moderate prostatic enlargement. Trace bilateral fat containing inguinal hernias. Atherosclerotic disease is present. RPTAT: AA .Gonzalez Mccarty MD, MD Date Time Electronically viewed and signed by .Gonzalez Mccarty MD, MD on 08/09/2016 17:13 .Tigre/
[2016-08-09 21:15] LABS: HEMATOCRIT 24.4 % (42.0-52.0); HEMOGLOBIN 8.1 g/dl (14.0-18.0)
[2016-08-10] VITALS (17 sets, daily range): BP systolic 101–143; BP diastolic 58–72; PULSE 58–98; RESP 16–20
[2016-08-10] MEDS: INSULIN ASPART [NOVOLOG] 3 ML PEN SC SCH ×4 (06:00→18:00)
[2016-08-10 06:42] LABS: ADD SCAN DIFF NO
[2016-08-10 06:46] LABS: BASOPHILS % 0.3 % (0.0-2.0); EOSINOPHILS # 0.2 10^3/ul (0.0-0.5); EOSINOPHILS % 2.1 % (0.0-7.0); HEMATOCRIT 25.8 % (42.0-52.0); HEMOGLOBIN 8.4 g/dl (14.0-18.0); LYMPHOCYTES # 0.8 10^3/ul (0.8-2.9); LYMPHOCYTES % 8.2 % (15.0-51.0); MEAN CORPUSCULAR HGB CONC 32.6 g/dl (32.0-37.0); MEAN CORPUSCULAR VOLUME 92.1 fl (82.0-101.0); MEAN PLATELET VOLUME 10.2 fl (7.4-10.4); MONOCYTES % 9.8 % (0.0-11.0); NEUTROPHILS % 78.5 % (39.0-77.0); PLATELET COUNT 293 10^3/UL (140-415); RED CELL DISTRIBUTION WIDTH 15.5 % (11.5-14.5); WHITE BLOOD COUNT 10.2 10^3/ul (4.8-10.8)
[2016-08-10 06:58] LABS: INR 1.16; PROTIME 14.8 Sec (12.2-14.2); PT RATIO 1.2
[2016-08-10 06:59] LABS: PARTIAL THROMBOPLASTIN TIME 29.5 Sec (25.0-35.0)
[2016-08-10 07:05] LABS: ALBUMIN 2.5 g/dl (3.3-4.9); ALBUMIN/GLOBULIN RATIO 1.25; BILIRUBIN,INDIRECT 0.4 mg/dl (0-1.1); BILIRUBIN,TOTAL 0.4 mg/dl (0.2-1.3); CALCIUM 7.5 mg/dl (8.4-10.2); CREATININE 0.85 mg/dl (0.61-1.24); TOTAL PROTEIN 4.5 g/dl (6.1-8.1)
[2016-08-10] MEDS: OCTREOTIDE 500 MCG in SOD CHLORIDE 0.9% 49 ML IV SCH (10:14)
[2016-08-10] MEDS: PANTOPRAZOLE IV 80 MG in SOD CHLORIDE 0.9% 100 ML IV SCH (10:14)
[2016-08-10] MEDS: SOD CHLORIDE 0.9% 1,000 ML IV SCH ×2 (10:24→20:00)
--- NOTE | 2016-08-10 16:47 | PN ---
DATE: 08/10/2016 TIME OF EVALUATION: 1600 SUBJECTIVE DATA: Denies any active bleeding. Denies any pain. OBJECTIVE DATA: VITAL SIGNS: Temperature 97.6, pulse rate 96, respiratory rate 20, blood pressure 143/60, oxygen saturation 100% on room air. GENERAL: This is a well-built, well-nourished male sitting in chair in no apparent distress. HEENT: Head normocephalic and atraumatic. Eyes: Anicteric sclerae. Conjunctivae clear. ENT: Nasal septum is midline. Oral mucosa is dry. NECK: Supple. No JVD noticed. RESPIRATORY: Bilaterally clear to auscultation. No adventitious breath sounds heard. No use of accessory muscles of respiration. CARDIAC: Regular rate and rhythm. S1, S2. ABDOMEN: Soft, nontender and nondistended. Bowel sounds positive in all 4 quadrants. GENITOURINARY: Deferred. EXTREMITIES: No cyanosis, no clubbing, no edema. Peripheral pulses are palpable. NEUROLOGIC: The patient is awake, alert and oriented. Cranial nerves are grossly intact. LABORATORY AND DIAGNOSTIC DATA: WBC 10.2, hemoglobin 8.4, hematocrit 25.8, platelet count 293. Sodium 136, potassium 4.0, chloride 113, carbon dioxide 20 , anion gap 5, BUN 12, creatinine 0.85, glucose 94, calcium 7.5. ASSESSMENT AND PLAN: 1. Acute symptomatic anemia secondary to acute blood loss. Continue blood transfusion as needed. Continue Protonix and octreotide. The patient is scheduled for esophagogastroduodenoscopy. 2. Acute gastrointestinal bleeding. Continue to replace blood products as needed. Continue Protonix and octreotide. Gastroenterology following. 3. Fluid, electrolytes and nutrition. N.p.o. Continue IV fluids. 4. Deep venous thrombosis prophylaxis. Ambulation. 5. Gastrointestinal prophylaxis. On proton pump inhibitors. PLAN: Await esophagogastroduodenoscopy. The case discussed with Dr. Chavez. BRADY CHAVEZ MD, AM/MARTA Conf#: [id number] DID#: [id number] MTDD
[2016-08-10] MEDS ORDERED: PROPOFOL 20 ML ONE (17:57)
[2016-08-10] MEDS ORDERED: LIDOCAINE 2% (SDV) 5 ML INJ ONE (17:57)
[2016-08-10 21:13] LABS: HEMATOCRIT 27.5 % (42.0-52.0); HEMOGLOBIN 8.8 g/dl (14.0-18.0)
[2016-08-11] VITALS (12 sets, daily range): BP systolic 116–139; BP diastolic 63–75; PULSE 58–105; RESP 18–20
[2016-08-11] MEDS: INSULIN ASPART [NOVOLOG] 3 ML PEN SC SCH ×5 (06:00→23:48)
[2016-08-11] MEDS: PANTOPRAZOLE (EC) 40 MG TAB PO SCH (06:12)
[2016-08-11 07:25] LABS: ADD SCAN DIFF NO
[2016-08-11 07:28] LABS: BASOPHILS % 0.2 % (0.0-2.0); EOSINOPHILS # 0.2 10^3/ul (0.0-0.5); EOSINOPHILS % 2.7 % (0.0-7.0); HEMATOCRIT 27.3 % (42.0-52.0); HEMOGLOBIN 8.6 g/dl (14.0-18.0); LYMPHOCYTES # 0.7 10^3/ul (0.8-2.9); LYMPHOCYTES % 8.5 % (15.0-51.0); MEAN CORPUSCULAR HEMOGLOBIN 28.9 pg (29.0-33.0); MEAN CORPUSCULAR HGB CONC 31.5 g/dl (32.0-37.0); MEAN CORPUSCULAR VOLUME 91.6 fl (82.0-101.0); MONOCYTE # 0.8 10^3/ul (0.3-0.9); MONOCYTES % 10.1 % (0.0-11.0); NEUTROPHIL # 6.2 10^3/ul (1.6-7.5); NEUTROPHILS % 77.6 % (39.0-77.0); PLATELET COUNT 310 10^3/UL (140-415); RED BLOOD COUNT 2.98 10^6/ul (4.70-6.10); RED CELL DISTRIBUTION WIDTH 15.3 % (11.5-14.5)
[2016-08-11 07:53] LABS: IRON 12 ug/dl (35-150)
[2016-08-11 07:58] LABS: CHOL/HDL RATIO 3.5 RATIO; PHOSPHORUS 3.6 mg/dl (2.5-4.9)
[2016-08-11 08:04] LABS: TOTAL IRON BINDING CAPACITY 250 ug/dl (241-421)
[2016-08-11 08:27] LABS: THYROID STIMULATING HORMONE 2.85 MIU/L (0.465-4.680)
[2016-08-11 08:31] LABS: FERRITIN 17.7 ng/ml (11.1-264.0)
[2016-08-11 08:34] LABS: CALCIUM 7.9 mg/dl (8.4-10.2); CREATININE 0.84 mg/dl (0.61-1.24); POTASSIUM 4.2 mmol/L (3.5-5.1)
--- NOTE | 2016-08-11 11:09 | PN ---
Date/Time of Note Date/Time of Note DATE: 08/11/16 TIME: 11:05 Assessment/Plan VTE Prophylaxis VTE Prophylaxis Intervention: ambulation, SCD's Lines/Catheters IV [facility]ter [facility] (from [facility] Saline Lock Urinary Cath still in place: No Assessment/Plan Chief Complaint/Hosp Course 1. Acute symptomatic anemia secondary to acute blood loss. Continue blood transfusion as needed. Continue Protonix. Status post esophagogastroduodenoscopy on 08/10/2016. 2. Acute gastrointestinal bleeding. Continue to replace blood products as needed. Continue Protonix. Gastroenterology following. 3. Iron deficiency. Will start patient on iron supplements. 4. Fluid, electrolytes and nutrition. Regular diet. 5. Deep venous thrombosis prophylaxis. Ambulation. 6. Gastrointestinal prophylaxis. On proton pump inhibitors. PLAN: Start iron supplements. Await further recommendations from gastroenterology. The case was discussed with Dr. Rojo. Problems: Subjective 24 Hr Interval Summary Free Text/Dictation Complains of some black stool. Exam/Review of Systems Vital Signs Vitals Vital Signs Date Time Temp Pulse Resp B/P Pulse Ox O2 Delivery O2 Flow Rate FiO2 08/11/16 08:10 68 08/11/16 07:46 98.1 18 139/74 98 08/11/16 00:15 Room Air 08/10/16 18:22 2.0 08/07/16 21:00 28 Intake and Output 08/10/16 08/10/16 08/11/16 15:00 23:00 07:00 Intake Total 348.75 ml 1737.5 ml 1075 ml Output Total 650 ml Balance -301.25 ml 1737.5 ml 1075 ml Exam GENERAL: This is a well-built, well-nourished male sitting in chair in no apparent distress. HEENT: Head normocephalic and atraumatic. Eyes: Anicteric sclerae. Conjunctivae clear. ENT: Nasal septum is midline. Oral mucosa is dry. NECK: Supple. No JVD noticed. RESPIRATORY: Bilaterally clear to auscultation. No adventitious breath sounds heard. No use of accessory muscles of respiration. CARDIAC: Regular rate and rhythm. S1, S2. ABDOMEN: Soft, nontender and nondistended. Bowel sounds positive in all 4 quadrants. GENITOURINARY: Deferred. EXTREMITIES: No cyanosis, no clubbing, no edema. Peripheral pulses are palpable. NEUROLOGIC: The patient is awake, alert and oriented. Cranial nerves are grossly intact. Results Result Diagram: 08/11/16 0645 08/11/16 0645 Results 24 hrs Laboratory Tests Test 08/10/16 12:49 08/10/16 18:24 08/10/16 21:01 08/10/16 23:34 Bedside Glucose 92 97 106 Hemoglobin 8.8 L Hematocrit 27.5 L Test 08/11/16 06:30 08/11/16 06:45 Iron Level 12 L Total Iron Binding Capacity 250 Percent Iron Saturation 5 L White Blood Count 8.0 # Red Blood Count 2.98 L Hemoglobin 8.6 L Hematocrit 27.3 L Mean Corpuscular Volume 91.6 Mean Corpuscular Hemoglobin 28.9 L Mean Corpuscular Hemoglobin Concent 31.5 L Red Cell Distribution Width 15.3 H Platelet Count 310 Mean Platelet Volume 10.0 Neutrophils % 77.6 H Lymphocytes % 8.5 L Monocytes % 10.1 Eosinophils % 2.7 Basophils % 0.2 Nucleated Red Blood Cells % 0.0 Neutrophils # 6.2 Lymphocytes # 0.7 L Monocytes # 0.8 Eosinophils # 0.2 Basophils # 0.0 Nucleated Red Blood Cells # 0.0 Sodium Level 135 Potassium Level 4.2 Chloride Level 110 Carbon Dioxide Level 23 Anion Gap 6 L Blood Urea Nitrogen 13 Creatinine 0.84 Glucose Level 93 Calcium Level 7.9 L Phosphorus Level 3.6 Magnesium Level 2.0 Ferritin 17.7 Triglycerides Level 67 Cholesterol Level 142 LDL Cholesterol, Calculated 89 HDL Cholesterol 40 Cholesterol/HDL Ratio 3.5 Thyroid Stimulating Hormone (TSH) 2.850 Free Thyroxine 1.41 Medications Medications Current Medications Ondansetron HCl 4 mg 4 mg Q6 PRN IV N/V; Start 08/07/16 at 21:30 Sodium Chloride (NS) 1,000 ml @ 75 mls/hr [id number] IV Last administered on 08/10t 20:00; Admin Dose 75 MLS/HR; Start 08/07/16 at 22:00 Miscellaneous Information 1 ea NOTE XX ; Start 08/07/16 at 22:00 Glucose (Glutose) 15 gm Q15M PRN PO DECREASED GLUCOSE; Start 08/07/16 at 22:00 Glucose (Glutose) 22.5 gm Q15M PRN PO DECREASED GLUCOSE; Start 08/07/16 at 22: 00 Dextrose (D50w Syringe) 25 ml Q15M PRN IV DECREASED GLUCOSE; Start 08/07/16 at 22:00 Dextrose (D50w Syringe) 50 ml Q15M PRN IV DECREASED GLUCOSE; Start 08/07/16 at 22:00 Glucagon (Glucagen) 1 mg Q15M PRN IM DECREASED GLUCOSE; Start 08/07/16 at 22:00 Glucose (Glutose) 15 gm Q15M PRN BUCCAL DECREASED GLUCOSE; Start 08/07/16 at 22 :00 Insulin Aspart (Novolog Insulin Pen) NOVOLOG *MILD* ALGORI... Q6 SC ; Start at 00:00 Pantoprazole 40 mg 40 mg DAILY@06 PO Last administered on 08/11/16t 06:12; Admin Dose 40 MG; Start 08/11/16 at 06:00 Ferric Sodium Gluconate Complex/ Sodium Chloride (Ferrlecit/NS) 110 ml @ 100 mls/hr Q24H IVPB ; Start 08/11/16 at 12:00; Stop 08/13/16 at 13:05 BRADY LIRA NP August 11, 2016 11:09
--- NOTE | 2016-08-11 13:16 | PN ---
Date/Time of Note Date/Time of Note DATE: 08/11/16 TIME: 13:10 Assessment/Plan VTE Prophylaxis VTE Prophylaxis Intervention: SCD's Lines/Catheters [facility] Saline Lock Urinary Cath still in place: No Assessment/Plan Assessment/Plan Assessment * Anemia EGD 08/10/2016 Erosive esophagitis Small hiatal hernia Gastritis R/O H pylori R/O lower GI bleed Plan * PPI * colonoscopy risk and benefit explained to patient and agreed with the planned procedure Subjective 24 Hr Interval Summary Free Text/Dictation * Course reviewed with RN * patient seen and examined * EGD 08/10/2016 erosive esophagitis small hiatal hernia gastritis r/o H pylori * wants to have colonoscopy Exam/Review of Systems Vital Signs Vitals Vital Signs Date Time Temp Pulse Resp B/P Pulse Ox O2 Delivery O2 Flow Rate FiO2 08/11/16 12:28 98.2 85 18 137/75 100 08/11/16 00:15 Room Air 08/10/16 18:22 2.0 08/07/16 21:00 28 Intake and Output 08/10/16 08/10/16 08/11/16 15:00 23:00 07:00 Intake Total 348.75 ml 1737.5 ml 1075 ml Output Total 650 ml Balance -301.25 ml 1737.5 ml 1075 ml Exam Constitutional: alert, oriented Psych: no complaints Head: normocephalic Eyes: nl conjunctiva Neck: non-tender, supple Respiratory: clear to auscultation, normal air movement Cardiovascular: nl pulses, regular rate and rhythm Gastrointestinal: bowel sounds, non-tender, soft Musculoskeletal: nl extremities to inspection, nl gait and stance Extremities: normal pulses Results Result Diagram: 08/11/16 0645 08/11/16 0645 Results 24 hrs Laboratory Tests Test 08/10/16 18:24 08/10/16 21:01 08/10/16 23:34 08/11/16 06:30 Bedside Glucose 97 106 Hemoglobin 8.8 L Hematocrit 27.5 L Iron Level 12 L Total Iron Binding Capacity 250 Percent Iron Saturation 5 L Test 08/11/16 06:45 White Blood Count 8.0 # Red Blood Count 2.98 L Hemoglobin 8.6 L Hematocrit 27.3 L Mean Corpuscular Volume 91.6 Mean Corpuscular Hemoglobin 28.9 L Mean Corpuscular Hemoglobin Concent 31.5 L Red Cell Distribution Width 15.3 H Platelet Count 310 Mean Platelet Volume 10.0 Neutrophils % 77.6 H Lymphocytes % 8.5 L Monocytes % 10.1 Eosinophils % 2.7 Basophils % 0.2 Nucleated Red Blood Cells % 0.0 Neutrophils # 6.2 Lymphocytes # 0.7 L Monocytes # 0.8 Eosinophils # 0.2 Basophils # 0.0 Nucleated Red Blood Cells # 0.0 Sodium Level 135 Potassium Level 4.2 Chloride Level 110 Carbon Dioxide Level 23 Anion Gap 6 L Blood Urea Nitrogen 13 Creatinine 0.84 Glucose Level 93 Calcium Level 7.9 L Phosphorus Level 3.6 Magnesium Level 2.0 Ferritin 17.7 Triglycerides Level 67 Cholesterol Level 142 LDL Cholesterol, Calculated 89 HDL Cholesterol 40 Cholesterol/HDL Ratio 3.5 Thyroid Stimulating Hormone (TSH) 2.850 Free Thyroxine 1.41 Medications Medications Current Medications Ondansetron HCl (Zofran Inj) 4 mg Q6 PRN IV N/V; Start 08/07/16 at 21:30 Miscellaneous Information 1 ea NOTE XX ; Start 08/07/16 at 22:00 Glucose (Glutose) 15 gm Q15M PRN PO DECREASED GLUCOSE; Start 08/07/16 at 22:00 Glucose (Glutose) 22.5 gm Q15M PRN PO DECREASED GLUCOSE; Start 08/07/16 at 22: 00 Dextrose (D50w Syringe) 25 ml Q15M PRN IV DECREASED GLUCOSE; Start 08/07/16 at 22:00 Dextrose (D50w Syringe) 50 ml Q15M PRN IV DECREASED GLUCOSE; Start 08/07/16 at 22:00 Glucagon (Glucagen) 1 mg Q15M PRN IM DECREASED GLUCOSE; Start 08/07/16 at 22:00 Glucose (Glutose) 15 gm Q15M PRN BUCCAL DECREASED GLUCOSE; Start 08/07/16 at 22 :00 Insulin Aspart (Novolog Insulin Pen) NOVOLOG *MILD* ALGORI... Q6 SC ; Start at 00:00 Pantoprazole 40 mg 40 mg DAILY@06 PO Last administered on 08/11/16t 06:12; Admin Dose 40 MG; Start 08/11/16 at 06:00 Ferric Sodium Gluconate Complex/ Sodium Chloride (Ferrlecit/NS) 110 ml @ 100 mls/hr Q24H IVPB ; Start 08/11/16 at 12:00; Stop 08/13/16 at 13:05 POLO HUIZAR MD August 11, 2016 13:16
[2016-08-11] MEDS ORDERED: BISACODYL (EC) 5 MG TAB PO ONE (13:30)
[2016-08-11] MEDS: SOD FERRIC GLUC COMPLX 125 MG in SOD CHLORIDE 0.9% 100 ML IVPB SCH (15:00)
[2016-08-11] MEDS ORDERED: MAGNESIUM CITRATE 300 ML BTL PO ONE (17:30)
[2016-08-11] MEDS ORDERED: POLYETHYLENE GLYCOL 3350 119 GM POWDER PO ONE (18:30)
[2016-08-11 21:13] LABS: HEMATOCRIT 29.6 % (42.0-52.0); HEMOGLOBIN 9.6 g/dl (14.0-18.0)
[2016-08-12] VITALS (14 sets, daily range): BP systolic 113–142; BP diastolic 63–80; PULSE 53–107; RESP 18–20
[2016-08-12] MEDS: INSULIN ASPART [NOVOLOG] 3 ML PEN SC SCH ×3 (06:00→17:47)
[2016-08-12] MEDS ORDERED: POLYETHYLENE GLYCOL 3350 119 GM POWDER PO ONE (06:00)
[2016-08-12] MEDS: PANTOPRAZOLE (EC) 40 MG TAB PO SCH (06:15)
[2016-08-12 07:33] LABS: ADD SCAN DIFF NO
[2016-08-12 07:35] LABS: ABNORMAL IP MESSAGE 1; BASOPHILS % 0.4 % (0.0-2.0); EOSINOPHILS # 0.3 10^3/ul (0.0-0.5); HEMATOCRIT 28.8 % (42.0-52.0); HEMOGLOBIN 9.2 g/dl (14.0-18.0); LYMPHOCYTES # 0.5 10^3/ul (0.8-2.9); LYMPHOCYTES % 6.9 % (15.0-51.0); MEAN CORPUSCULAR HEMOGLOBIN 29.1 pg (29.0-33.0); MEAN CORPUSCULAR HGB CONC 31.9 g/dl (32.0-37.0); MEAN CORPUSCULAR VOLUME 91.1 fl (82.0-101.0); MEAN PLATELET VOLUME 9.7 fl (7.4-10.4); MONOCYTE # 0.8 10^3/ul (0.3-0.9); MONOCYTES % 10.8 % (0.0-11.0); NEUTROPHIL # 5.7 10^3/ul (1.6-7.5); NEUTROPHILS % 76.8 % (39.0-77.0); PLATELET COUNT 356 10^3/UL (140-415); RED BLOOD COUNT 3.16 10^6/ul (4.70-6.10); RED CELL DISTRIBUTION WIDTH 14.5 % (11.5-14.5); WHITE BLOOD COUNT 7.4 10^3/ul (4.8-10.8)
[2016-08-12 07:50] LABS: MAGNESIUM 2.2 mg/dl (1.7-2.5); PHOSPHORUS 3.8 mg/dl (2.5-4.9)
[2016-08-12 07:58] LABS: CALCIUM 8.6 mg/dl (8.4-10.2); CREATININE 0.89 mg/dl (0.61-1.24); POTASSIUM 3.9 mmol/L (3.5-5.1)
[2016-08-12] MEDS ORDERED: BISACODYL (EC) 5 MG TAB PO ONE (08:00)
[2016-08-12] MEDS: SOD FERRIC GLUC COMPLX 125 MG in SOD CHLORIDE 0.9% 100 ML IVPB SCH (11:30)
--- NOTE | 2016-08-12 12:55 | PN ---
Date/Time of Note Date/Time of Note DATE: 08/12/16 TIME: 12:54 Assessment/Plan VTE Prophylaxis VTE Prophylaxis Intervention: ambulation, SCD's Lines/Catheters IV Catheter Type (from [facility] [place] Saline Lock Urinary Cath still in place: No Assessment/Plan Chief Complaint/Hosp Course 1. Acute symptomatic anemia secondary to acute blood loss. Continue blood transfusion as needed. Continue Protonix. Status post esophagogastroduodenoscopy on 08/10/2016. 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 2. Acute gastrointestinal bleeding. Continue to replace blood products as needed. Continue Protonix. Gastroenterology following. 3. Iron deficiency. Continue iron supplements. 4. Fluid, electrolytes and nutrition. Regular diet. 5. Deep venous thrombosis prophylaxis. Ambulation. 6. Gastrointestinal prophylaxis. On proton pump inhibitors. PLAN: The patient is scheduled for a colonoscopy today. Can be transferred to Med/Surg. The case was discussed with Dr. Rojo. Problems: Subjective 24 Hr Interval Summary Free Text/Dictation H&H stable and improving. Exam/Review of Systems Vital Signs Vitals Vital Signs Date Time Temp Pulse Resp B/P Pulse Ox O2 Delivery O2 Flow Rate FiO2 08/12/16 12:00 56 08/12/16 11:28 97.8 20 113/70 100 08/11/16 00:15 Room Air 08/10/16 18:22 2.0 Intake and Output 08/11/16 08/11/16 08/12/16 15:00 23:00 07:00 Intake Total 1420 ml 1200 ml Balance 1420 ml 1200 ml Exam GENERAL: This is a well-built, well-nourished male sitting in chair in no apparent distress. HEENT: Head normocephalic and atraumatic. Eyes: Anicteric sclerae. Conjunctivae clear. ENT: Nasal septum is midline. Oral mucosa is dry. NECK: Supple. No JVD noticed. RESPIRATORY: Bilaterally clear to auscultation. No adventitious breath sounds heard. No use of accessory muscles of respiration. CARDIAC: Regular rate and rhythm. S1, S2. ABDOMEN: Soft, nontender and nondistended. Bowel sounds positive in all 4 quadrants. GENITOURINARY: Deferred. EXTREMITIES: No cyanosis, no clubbing, no edema. Peripheral pulses are palpable. NEUROLOGIC: The patient is awake, alert and oriented. Cranial nerves are grossly intact. Results Result Diagram: 08/12/16 0702 08/12/16 0702 Results 24 hrs Laboratory Tests Test 08/11/16 13:34 08/11/16 21:05 08/11/16 23:41 08/12/16 06:18 Stool Occult Blood POSITIVE Hemoglobin 9.6 L Hematocrit 29.6 L Bedside Glucose 95 123 Test 08/12/16 07:02 08/12/16 11:29 White Blood Count 7.4 Red Blood Count 3.16 L Hemoglobin 9.2 L Hematocrit 28.8 L Mean Corpuscular Volume 91.1 Mean Corpuscular Hemoglobin 29.1 Mean Corpuscular Hemoglobin Concent 31.9 L Red Cell Distribution Width 14.5 Platelet Count 356 Mean Platelet Volume 9.7 Neutrophils % 76.8 Lymphocytes % 6.9 L Monocytes % 10.8 Eosinophils % 4.0 Basophils % 0.4 Nucleated Red Blood Cells % 0.0 Neutrophils # 5.7 Lymphocytes # 0.5 L Monocytes # 0.8 Eosinophils # 0.3 Basophils # 0.0 Nucleated Red Blood Cells # 0.0 Sodium Level 137 Potassium Level 3.9 Chloride Level 107 Carbon Dioxide Level 25 Anion Gap 9 Blood Urea Nitrogen 11 Creatinine 0.89 Glucose Level 109 Calcium Level 8.6 Phosphorus Level 3.8 Magnesium Level 2.2 Bedside Glucose 87 Medications Medications Current Medications Ondansetron HCl (Zofran Inj) 4 mg Q6 PRN IV N/V; Start 08/07/16 at 21:30 Miscellaneous Information 1 ea NOTE XX ; Start 08/07/16 at 22:00 Glucose (Glutose) 15 gm Q15M PRN PO DECREASED GLUCOSE; Start 08/07/16 at 22:00 Glucose (Glutose) 22.5 gm Q15M PRN PO DECREASED GLUCOSE; Start 08/07/16 at 22: 00 Dextrose (D50w Syringe) 25 ml Q15M PRN IV DECREASED GLUCOSE; Start 08/07/16 at 22:00 Dextrose (D50w Syringe) 50 ml Q15M PRN IV DECREASED GLUCOSE; Start 08/07/16 at 22:00 Glucagon (Glucagen) 1 mg Q15M PRN IM DECREASED GLUCOSE; Start 08/07/16 at 22:00 Glucose (Glutose) 15 gm Q15M PRN BUCCAL DECREASED GLUCOSE; Start 08/07/16 at 22 :00 Insulin Aspart (Novolog Insulin Pen) NOVOLOG *MILD* ALGORI... Q6 SC ; Start at 00:00 Pantoprazole 40 mg 40 mg DAILY@06 PO Last administered on 08/12/16 06:15; Admin Dose 40 MG; Start 08/11/16 at 06:00 Ferric Sodium Gluconate Complex/ Sodium Chloride (Ferrlecit/NS) 110 ml @ 100 mls/hr Q24H IVPB Last administered on 08/12/16 11:30; Admin Dose 100 MLS/HR; Start 08/11/16 at 12:00; Stop 08/13/16 at 13:05 BRADY LIRA NP August 12, 2016 12:55
--- NOTE | 2016-08-12 15:36 | GILP ---
DATE OF PROCEDURE: PROCEDURE: Esophagogastroduodenoscopy with biopsies. BRIEF HISTORY AND INDICATIONS: The patient is being evaluated for gastrointestinal bleeding. PREMEDICATION: Monitored anesthesia care by anesthesiologist. SURGEON: Polo Hewitt MD. INSTRUMENT USED. Olympus panendoscope. TECHNIQUE: After informed consent, with the patient/relatives understanding the procedure, its indic ations, potential risks and complications, including but not limited to: allergic reaction, bleeding , perforation or infection, and after all pertinent questions were answered to the patients satisfac tion, the patient/relatives signed witnessed informed consent. Following this, premedication was ad ministered slowly IV push under careful cardiovascular and respiratory monitoring with pulse oximetr y, automatic blood pressure and ski patrol director. Once the sedative effect was achieved the patient was place in the left lateral decubitus, the panendoscope was introduced and advanced under visual contr ol. Careful examination of the upper gastrointestinal tract, both on insertion as well as withdrawal of the instrument disclosed the following findings: ESOPHAGUS: The distal esophagus shows significant erythema and edema of the mucosa. Superficial er osions are also present. A small hiatal hernia was present. STOMACH: Upon entrance to the stomach, air was insufflated, the gastric spence distended normally. The mucosa of the fundus, body and antrum of the stomach was carefully examined, shows erythema and edema of the mucosa of a moderate degree. Biopsies were obtained to rule out H. pylori infection. PYLORUS: The pylorus appears patent and within normal limits, with no evidence of gastric outlet ob struction. DUODENUM: The duodenal mucosa was carefully examined in the duodenal bulb as well as the second por tion of the duodenum and appears unremarkable with no evidence of duodenitis, ulcer or neoplasm. The instrument was then withdrawn, the patient tolerated the procedure well and was transfer out of the endoscopy suite awake, and in good condition to continue recovery under observation IMPRESSION: 1. Erosive esophagitis, biopsies obtained. 2. Small hiatal hernia. 3. Gastritis, rule out Helicobacter pylori infection, biopsies were obtained. PLAN: The patient will be treated with PPIs. Pathology will be reviewed as soon as available. Fur ther recommendation will depend on the patient's clinical course as well as review of biopsies. Dictated By: POLO HEWITT MS/MARTA Conf#: [id number] DID#: [id number] CC: POLO HEWITT;*End*
[2016-08-12] MEDS ORDERED: PROPOFOL 40 ML ONE (17:50)
[2016-08-12] MEDS ORDERED: ONDANSETRON 4 MG INJ IV PRN (18:30)
[2016-08-12] MEDS ORDERED: HYDROmorphONE (0.2 MG/ML) 10ML SYG IV PRN ×2 (18:30)
[2016-08-12] MEDS ORDERED: DIPHENHYDRAMINE 50 MG INJ IV PRN (18:30)
[2016-08-12] MEDS ORDERED: MEPERIDINE 25 MG INJ IV PRN (18:30)
--- NOTE | 2016-08-12 19:22 | GILP ---
DATE OF PROCEDURE: 08/12/2016 DATE: 08/12/2016 NAME OF PROCEDURE: Colonoscopy to cecum. SURGEON: Olga Hewitt MD. PREOPERATIVE DIAGNOSIS(ES): POSTOPERATIVE DIAGNOSIS(ES): HISTORY AND INDICATIONS: PREMEDICATION: Monitored anesthesia care by anesthesiologist. INSTRUMENT USED: Olympus colonoscope. PREPARATION: TECHNIQUE: After informed consent, with the patient/relatives understanding the procedure, its indic ations potential risks and complications, including but not limited to: allergic reaction, bleeding, perforation, infection, missed lesions and after all pertinent questions were answered to the patie nt's satisfaction, the patient/relatives signed the witnessed informed consent. Following this, premedication was administered slowly IV push by under careful cardiovascular and re spiratory monitoring with pulse oximetry, automatic blood pressure and utility worker production. Once the sedativ e effect was achieved, the patient was placed in the left lateral decubitus position, digital rectal examination was performed. The colonoscope was then introduced and advanced under visual control th roughout all segments of the colon including: the rectum, sigmoid, descending colon, splenic flexure , transverse colon, hepatic flexure, ascending colon and finally reaching the cecum which was clearl y identified by transillumination, finger indentation and the ileocecal valve. Careful examination o f the mucosa of the lower gastrointestinal tract both on insertion as well as withdrawal of the inst rument disclosed the following findings: RECTAL: No evidence of perirectal disease, no masses. COLONIC MUCOSA: The colonic mucosa is entirely unremarkable throughout. The ileocecal valve was vito leslie identified and appears unremarkable. The instrument was withdrawn reexamining the mucosa in de tail. No additional abnormalities are noted with exception of moderate-sized internal hemorrhoids. The instrument was then withdrawn, the patient tolerated the procedure well and was transferred out of the Endoscopy Suite awake and in good condition to continue recovery under observation. IMPRESSION: Moderate sized internal hemorrhoids, otherwise normal colonic mucosa to cecum. RECOMMENDATIONS: The patient will be continued on present regimen. Diet will be advanced as tolera kevin, and further recommendations will depend on patient's clinical course. Annual Hemoccult stool t esting is recommended and screening colonoscopy in 10 years is recommended. Dictated By: OLGA HEWITT MS/MARTA Conf#: [id number] DID#: [id number]
[2016-08-12] MEDS ORDERED: INSULIN ASPART [NOVOLOG] 3 ML PEN SC SCH (21:00)
[2016-08-12] MEDS: Insulin NOVOLOG SS MILD Algorithm (SS with meals and bedtime) SC SCH (21:00)
[2016-08-13 00:30] VITALS: BP 126/57; RESP 16
[2016-08-13] MEDS: ACCUCHECK AT 2AM (Patients on SS coverage) XX SCH (02:00)
[2016-08-13] MEDS: PANTOPRAZOLE (EC) 40 MG TAB PO SCH (05:23)
[2016-08-13 05:50] LABS: ADD SCAN DIFF NO
[2016-08-13 05:54] LABS: BASOPHILS % 0.4 % (0.0-2.0); EOSINOPHILS # 0.4 10^3/ul (0.0-0.5); EOSINOPHILS % 6.1 % (0.0-7.0); HEMATOCRIT 28.2 % (42.0-52.0); HEMOGLOBIN 8.8 g/dl (14.0-18.0); LYMPHOCYTES % 14.4 % (15.0-51.0); MEAN CORPUSCULAR HEMOGLOBIN 28.5 pg (29.0-33.0); MEAN CORPUSCULAR HGB CONC 31.2 g/dl (32.0-37.0); MEAN CORPUSCULAR VOLUME 91.3 fl (82.0-101.0); MEAN PLATELET VOLUME 10.5 fl (7.4-10.4); MONOCYTE # 0.8 10^3/ul (0.3-0.9); MONOCYTES % 11.8 % (0.0-11.0); NEUTROPHIL # 4.7 10^3/ul (1.6-7.5); NEUTROPHILS % 66.4 % (39.0-77.0); PLATELET COUNT 352 10^3/UL (140-415); RED BLOOD COUNT 3.09 10^6/ul (4.70-6.10); RED CELL DISTRIBUTION WIDTH 14.7 % (11.5-14.5)
[2016-08-13 06:14] LABS: MAGNESIUM 2.1 mg/dl (1.7-2.5); PHOSPHORUS 4.6 mg/dl (2.5-4.9)
[2016-08-13 06:15] LABS: CALCIUM 8.2 mg/dl (8.4-10.2); CREATININE 0.87 mg/dl (0.61-1.24); POTASSIUM 4.1 mmol/L (3.5-5.1)
[2016-08-13] MEDS: Insulin NOVOLOG SS MILD Algorithm (SS with meals and bedtime) SC SCH ×4 (07:30→21:00)
[2016-08-13 07:57] VITALS: BP 110/61; PULSE 96; RESP 16
[2016-08-13] MEDS: SOD FERRIC GLUC COMPLX 125 MG in SOD CHLORIDE 0.9% 100 ML IVPB SCH (12:49)
--- NOTE | 2016-08-13 14:07 | PN ---
Date/Time of Note Date/Time of Note DATE: 08/13/16 TIME: 14:01 Assessment/Plan VTE Prophylaxis VTE Prophylaxis Intervention: ambulation Lines/Catheters IV [facility]from [facility] Saline Lock Urinary Cath still in place: No Assessment/Plan Assessment/Plan Anemia EGD 08/10/2016 Erosive esophagitis Small hiatal hernia Gastritis R/O H pylori Colonoscopy 08/12/2016 Moderate sized internal hemorrhoids, otherwise normal colonic mucosa to cecum. Plan * PPI * continue present management Subjective 24 Hr Interval Summary Free Text/Dictation * Course reviewed with RN * patient seen and examined * Colonoscopy 08/12/2016 Moderate sized internal hemorrhoids, otherwise normal colonic mucosa to cecum. * no melena nor hematochezia * Hemoglobin 8.8 Exam/Review of Systems Vital Signs Vitals Vital Signs Date Time Temp Pulse Resp B/P Pulse Ox O2 Delivery O2 Flow Rate FiO2 08/13/16 07:57 98.3 96 16 110/61 99 Room Air 08/10/16 18:22 2.0 Intake and Output 08/12/16 08/12/16 08/13/16 15:00 23:00 07:00 Intake Total 220 ml Balance 220 ml Exam Constitutional: alert, oriented Neck: non-tender, supple Respiratory: clear to auscultation, normal air movement Cardiovascular: nl pulses, regular rate and rhythm Gastrointestinal: bowel sounds, non-tender, soft Musculoskeletal: nl extremities to inspection, nl gait and stance Extremities: normal pulses Neurological: nl speech, nl strength Skin: nl turgor, No rash or lesions Results Result Diagram: 08/13/16 0457 08/13/16 0457 Results 24 hrs Laboratory Tests Test 08/12/16 21:59 08/13/16 02:11 08/13/16 04:57 08/13/16 07:47 Bedside Glucose 151 100 87 White Blood Count 7.0 Red Blood Count 3.09 L Hemoglobin 8.8 L Hematocrit 28.2 L Mean Corpuscular Volume 91.3 Mean Corpuscular Hemoglobin 28.5 L Mean Corpuscular Hemoglobin Concent 31.2 L Red Cell Distribution Width 14.7 H Platelet Count 352 Mean Platelet Volume 10.5 H Neutrophils % 66.4 Lymphocytes % 14.4 L Monocytes % 11.8 H Eosinophils % 6.1 Basophils % 0.4 Nucleated Red Blood Cells % 0.0 Neutrophils # 4.7 Lymphocytes # 1.0 Monocytes # 0.8 Eosinophils # 0.4 Basophils # 0.0 Nucleated Red Blood Cells # 0.0 Sodium Level 137 Potassium Level 4.1 Chloride Level 109 Carbon Dioxide Level 22 Anion Gap 10 Blood Urea Nitrogen 12 Creatinine 0.87 Glucose Level 83 Calcium Level 8.2 L Phosphorus Level 4.6 Magnesium Level 2.1 Test 08/13/16 11:44 Bedside Glucose 99 Medications Medications Current Medications Ondansetron HCl (Zofran Inj) 4 mg Q6 PRN IV N/V; Start 08/07/16 at 21:30 Miscellaneous Information 1 ea NOTE XX ; Start 08/07/16 at 22:00 Glucose (Glutose) 15 gm Q15M PRN PO DECREASED GLUCOSE; Start 08/07/16 at 22:00 Glucose (Glutose) 22.5 gm Q15M PRN PO DECREASED GLUCOSE; Start 08/07/16 at 22: 00 Dextrose (D50w Syringe) 25 ml Q15M PRN IV DECREASED GLUCOSE; Start 08/07/16 at 22:00 Dextrose (D50w Syringe) 50 ml Q15M PRN IV DECREASED GLUCOSE; Start 08/07/16 at 22:00 Glucagon (Glucagen) 1 mg Q15M PRN IM DECREASED GLUCOSE; Start 08/07/16 at 22:00 Glucose (Glutose) 15 gm Q15M PRN BUCCAL DECREASED GLUCOSE; Start 08/07/16 at 22 :00 Pantoprazole (Protonix Tab) 40 mg DAILY@06 PO Last administered on 08/13/16t 05 :23; Admin Dose 40 MG; Start 08/11/16 at 06:00 Diagnostic Test (Pha) (Accu-Chek) 1 ea 02 XX ; Start 08/13/16 at 02:00 POLO HUIZAR MD August 13, 2016 14:07
--- NOTE | 2016-08-13 15:42 | PN ---
Date/Time of Note Date/Time of Note DATE: 08/13/16 TIME: 15:37 Assessment/Plan VTE Prophylaxis VTE Prophylaxis Intervention: SCD's Lines/Catheters IV C[facility]ter Type (from [facility]): Saline Lock Urinary Cath still in place: No Assessment/Plan Assessment/Plan 1. Acute symptomatic anemia due to GI bleeding, on iron supplement, follow up with H/H 2. GI bleeding, s/p EGD and colonoscopy, unremarkable except hemorrhoid Subjective 24 Hr Interval Summary Free Text/Dictation no BM after colonoscopy. No abdominal pain Exam/Review of Systems Vital Signs Vitals Vital Signs Date Time Temp Pulse Resp B/P Pulse Ox O2 Delivery O2 Flow Rate FiO2 08/13/16 07:57 98.3 96 16 110/61 99 Room Air 08/10/16 18:22 2.0 Intake and Output 08/12/16 08/12/16 08/13/16 15:00 23:00 07:00 Intake Total 220 ml Balance 220 ml Exam Constitutional: alert, oriented, well developed Psych: nl mood/affect, no complaints Head: atraumatic, normocephalic Eyes: EOMI, nl conjunctiva, nl lids ENMT: nl external ears & nose, nl lips & teeth, nl nasal mucosa & septum Neck: non-tender, supple Respiratory: clear to auscultation, normal air movement, No congested cough, No crackles/rales, No diminished breath sounds, No intercostal retraction, No labored breathing, No other, No respirations, No tactile fremitus, No wheezing Cardiovascular: nl pulses, regular rate and rhythm, No S3, No S4, No bruits, No diastolic murmur, No edema, No gallop, No irregular rhythm, No jugular venous distention (JVD), No murmurs/extra sounds, No other, No rub, No systolic murmur Gastrointestinal: nl liver, spleen, non-tender, soft, No ascites, No bowel sounds, No distended, No firm, No hepatomegaly, No mass , No other, No rebound or guarding, No splenomegaly, No surgical scars, No tender Musculoskeletal: nl extremities to inspection Extremities: normal pulses, No calf tenderness, No clubbing, No cyanosis, No edema, No other, No palpable cord, No pitting pedal edema, No tenderness 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, nl mental status, nl speech, nl strength, No DTR's symmetric, No confused, No focal weakness, No lethargic, No numbness , No other, No reflexes, No unresponsive Skin: nl turgor Lymph: nl lymph nodes Results Result Diagram: 08/13/16 0457 08/13/16 0457 Results 24 hrs Laboratory Tests Test 08/12/16 21:59 08/13/16 02:11 08/13/16 04:57 08/13/16 07:47 Bedside Glucose 151 100 87 White Blood Count 7.0 Red Blood Count 3.09 L Hemoglobin 8.8 L Hematocrit 28.2 L Mean Corpuscular Volume 91.3 Mean Corpuscular Hemoglobin 28.5 L Mean Corpuscular Hemoglobin Concent 31.2 L Red Cell Distribution Width 14.7 H Platelet Count 352 Mean Platelet Volume 10.5 H Neutrophils % 66.4 Lymphocytes % 14.4 L Monocytes % 11.8 H Eosinophils % 6.1 Basophils % 0.4 Nucleated Red Blood Cells % 0.0 Neutrophils # 4.7 Lymphocytes # 1.0 Monocytes # 0.8 Eosinophils # 0.4 Basophils # 0.0 Nucleated Red Blood Cells # 0.0 Sodium Level 137 Potassium Level 4.1 Chloride Level 109 Carbon Dioxide Level 22 Anion Gap 10 Blood Urea Nitrogen 12 Creatinine 0.87 Glucose Level 83 Calcium Level 8.2 L Phosphorus Level 4.6 Magnesium Level 2.1 Test 08/13/16 11:44 Bedside Glucose 99 Medications Medications Current Medications Ondansetron HCl (Zofran Inj) 4 mg Q6 PRN IV N/V; Start 08/07/16 at 21:30 Miscellaneous Information 1 ea NOTE XX ; Start 08/07/16 at 22:00 Glucose (Glutose) 15 gm Q15M PRN PO DECREASED GLUCOSE; Start 08/07/16 at 22:00 Glucose (Glutose) 22.5 gm Q15M PRN PO DECREASED GLUCOSE; Start 08/07/16 at 22: 00 Dextrose (D50w Syringe) 25 ml Q15M PRN IV DECREASED GLUCOSE; Start 08/07/16 at 22:00 Dextrose (D50w Syringe) 50 ml Q15M PRN IV DECREASED GLUCOSE; Start 08/07/16 at 22:00 Glucagon (Glucagen) 1 mg Q15M PRN IM DECREASED GLUCOSE; Start 08/07/16 at 22:00 Glucose (Glutose) 15 gm Q15M PRN BUCCAL DECREASED GLUCOSE; Start 08/07/16 at 22 :00 Pantoprazole (Protonix Tab) 40 mg DAILY@06 PO Last administered on 08/13/16t 05 :23; Admin Dose 40 MG; Start 08/11/16 at 06:00 Diagnostic Test (Pha) (Accu-Chek) 1 ea 02 XX ; Start 08/13/16 at 02:00 KELSIE PATEL MD August 13, 2016 15:42
[2016-08-13 16:16] VITALS: BP 114/60; PULSE 79; RESP 20
[2016-08-13 19:34] VITALS: BP 108/54; RESP 16
[2016-08-14] MEDS: ACCUCHECK AT 2AM (Patients on SS coverage) XX SCH (02:00)
[2016-08-14] MEDS: PANTOPRAZOLE (EC) 40 MG TAB PO SCH (05:14)
[2016-08-14 06:03] LABS: ADD SCAN DIFF NO
[2016-08-14 06:13] LABS: BASOPHILS % 0.2 % (0.0-2.0); EOSINOPHILS # 0.4 10^3/ul (0.0-0.5); EOSINOPHILS % 4.7 % (0.0-7.0); HEMATOCRIT 29.3 % (42.0-52.0); HEMOGLOBIN 9.3 g/dl (14.0-18.0); LYMPHOCYTES # 0.8 10^3/ul (0.8-2.9); LYMPHOCYTES % 9.7 % (15.0-51.0); MEAN CORPUSCULAR HGB CONC 31.7 g/dl (32.0-37.0); MEAN CORPUSCULAR VOLUME 91.3 fl (82.0-101.0); MEAN PLATELET VOLUME 10.3 fl (7.4-10.4); MONOCYTE # 0.9 10^3/ul (0.3-0.9); MONOCYTES % 10.9 % (0.0-11.0); NEUTROPHIL # 6.2 10^3/ul (1.6-7.5); NEUTROPHILS % 73.4 % (39.0-77.0); PLATELET COUNT 389 10^3/UL (140-415); RED BLOOD COUNT 3.21 10^6/ul (4.70-6.10); RED CELL DISTRIBUTION WIDTH 14.7 % (11.5-14.5); WHITE BLOOD COUNT 8.4 10^3/ul (4.8-10.8)
[2016-08-14 07:25] VITALS: BP 113/67; PULSE 93; RESP 16
[2016-08-14] MEDS: Insulin NOVOLOG SS MILD Algorithm (SS with meals and bedtime) SC SCH ×2 (07:30→11:30)
--- NOTE | 2016-08-14 13:07 | CONS ---
Date/Time of Note Date/Time of Note DATE: 08/14/16 TIME: 13:06 Assessment/Plan Assessment/Plan Chief Complaint/Hosp Course Mr. Jose J Frye is a 65-year-old male who presented to the emergency room secondary to worsening weakness and melena stools. Patient states symptoms started 5-6 days ago and have progressively gotten worse. Patient denies nausea , vomiting, fever, chills, hematochezia, sick contacts, travel outside the [place], and previous episode. Patient denies any significant medical history. Patient reports chronic Tylenol use for everyday aches and pains but states he uses it on a as needed basis. Patient has never had colonoscopy and denies family history of colon cancer or colon polyps. Problems: Consultation Date/Type/Reason Admit Date/Time August 07, 2016 at 21:14 Initial Consult Date 08/09/16 Type of Consultation: Gastroenterology 24 HR Interval Summary Free Text/Dictation Hgb stable Exam/Review of Systems Vital Signs Vitals Vital Signs Date Time Temp Pulse Resp B/P Pulse Ox O2 Delivery O2 Flow Rate FiO2 08/14/16 07:25 98.0 93 16 113/67 99 Room Air 08/10/16 18:22 2.0 Intake and Output 08/13/16 08/13/16 08/14/16 15:00 23:00 07:00 Intake Total 110 ml 1000 ml 350 ml Balance 110 ml 1000 ml 350 ml Results Result Diagram: 08/14/16 0525 08/13/16 0457 Results 24 hrs Laboratory Tests Test 08/13/16 17:21 08/13/16 20:09 08/14/16 05:25 08/14/16 08:03 Bedside Glucose 98 118 93 White Blood Count 8.4 Red Blood Count 3.21 L Hemoglobin 9.3 L Hematocrit 29.3 L Mean Corpuscular Volume 91.3 Mean Corpuscular Hemoglobin 29.0 Mean Corpuscular Hemoglobin Concent 31.7 L Red Cell Distribution Width 14.7 H Platelet Count 389 Mean Platelet Volume 10.3 Neutrophils % 73.4 Lymphocytes % 9.7 L Monocytes % 10.9 Eosinophils % 4.7 Basophils % 0.2 Nucleated Red Blood Cells % 0.0 Neutrophils # 6.2 Lymphocytes # 0.8 Monocytes # 0.9 Eosinophils # 0.4 Basophils # 0.0 Nucleated Red Blood Cells # 0.0 Test 08/14/16 11:56 Bedside Glucose 76 Medications Medications Current Medications Ondansetron HCl (Zofran Inj) 4 mg Q6 PRN IV N/V; Start 08/07/16 at 21:30 Miscellaneous Information 1 ea NOTE XX ; Start 08/07/16 at 22:00 Glucose (Glutose) 15 gm Q15M PRN PO DECREASED GLUCOSE; Start 08/07/16 at 22:00 Glucose (Glutose) 22.5 gm Q15M PRN PO DECREASED GLUCOSE; Start 08/07/16 at 22: 00 Dextrose (D50w Syringe) 25 ml Q15M PRN IV DECREASED GLUCOSE; Start 08/07/16 at 22:00 Dextrose (D50w Syringe) 50 ml Q15M PRN IV DECREASED GLUCOSE; Start 08/07/16 at 22:00 Glucagon (Glucagen) 1 mg Q15M PRN IM DECREASED GLUCOSE; Start 08/07/16 at 22:00 Glucose (Glutose) 15 gm Q15M PRN BUCCAL DECREASED GLUCOSE; Start 08/07/16 at 22 :00 Pantoprazole (Protonix Tab) 40 mg DAILY@06 PO Last administered on 08/14/16t 05 :14; Admin Dose 40 MG; Start 08/11/16 at 06:00 Diagnostic Test (Pha) (Accu-Chek) 1 ea 02 XX ; Start 08/13/16 at 02:00 GREGORY GRIGSBY August 14, 2016 13:07
--- NOTE | 2016-08-14 13:33 | CONS ---
Date/Time of Note Date/Time of Note DATE: 08/14/16 TIME: 13:23 Assessment/Plan Assessment/Plan Chief Complaint/Hosp Course Mr. Jose J Frye is a 65-year-old male who presented to the emergency room secondary to worsening weakness and melena stools. Patient states symptoms started 5-6 days ago and have progressively gotten worse. Patient denies nausea , vomiting, fever, chills, hematochezia, sick contacts, travel outside the [place], and previous episode. Patient denies any significant medical history. Patient reports chronic Tylenol use for everyday aches and pains but states he uses it on a as needed basis. Patient has never had colonoscopy and denies family history of colon cancer or colon polyps. Problems: Additional Assessment/Plan Acute anemia Likely secondary to chronic iron deficiency Monitor H&H QD, transfuse 2 units for hemoglobin less than 7.[address] abdomen: No evidence of renal or ureteral calculi or hydronephrosis. No evidence of bowel obstruction or inflammation. There is a moderately fecal filled colon. Trace bilateral layering pleural effusions are present. Moderate prostatic enlargement. Trace bilateral fat containing inguinal hernias. Atherosclerotic disease is present. Continue PPI BID EGD: Erosive esophagitis, Small hiatal hernia, Gastritis. Compatible with early Mello's esophagus. Rare goblet cells are identified. No Helicobacter pylori is identified in Giemsa stain. No evidence of dysplasia or malignancy. Colonoscopy: Moderate sized internal hemorrhoids, otherwise normal colonic mucosa to cecum Mello's Esophagus Biopsy neg for dysplasia and malignancy Recommend EGD in 4 - 6 weeks and yearly thereafter Continue PPI BID Further recommendations depend on clinical course Patient seen in collaboration with Dr. Hewitt Consultation Date/Type/Reason Admit Date/Time August 07, 2016 at 21:14 Initial Consult Date 08/09/16 Type of Consultation: Gastroenterology 24 HR Interval Summary Free Text/Dictation Pt tolerating diet Pt denies abdominal pain, nausea, vomiting Hgb stable Anemia likely secondary to severe Iron deficiency Advised pt of biopsy results and provided handout Pt to continue PPI BID and repeat EGD in 4-6 weeks and yearly thereafter Exam/Review of Systems Vital Signs Vitals Vital Signs Date Time Temp Pulse Resp B/P Pulse Ox O2 Delivery O2 Flow Rate FiO2 08/14/16 07:25 98.0 93 16 113/67 99 Room Air 08/10/16 18:22 2.0 Intake and Output 08/13/16 08/13/16 08/14/16 15:00 23:00 07:00 Intake Total 110 ml 1000 ml 350 ml Balance 110 ml 1000 ml 350 ml Exam Constitutional: alert, oriented, well developed Psych: nl mood/affect Head: normocephalic Eyes: EOMI, nl conjunctiva, nl lids ENMT: nl external ears & nose, nl lips & teeth, nl nasal mucosa & septum Respiratory: clear to auscultation, normal air movement Cardiovascular: regular rate and rhythm Gastrointestinal: soft, non-tender Musculoskeletal: nl extremities to inspection 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 Results Result Diagram: 08/14/16 0525 08/13/16 0457 Results 24 hrs Laboratory Tests Test 08/13/16 17:21 08/13/16 20:09 08/14/16 05:25 08/14/16 08:03 Bedside Glucose 98 118 93 White Blood Count 8.4 Red Blood Count 3.21 L Hemoglobin 9.3 L Hematocrit 29.3 L Mean Corpuscular Volume 91.3 Mean Corpuscular Hemoglobin 29.0 Mean Corpuscular Hemoglobin Concent 31.7 L Red Cell Distribution Width 14.7 H Platelet Count 389 Mean Platelet Volume 10.3 Neutrophils % 73.4 Lymphocytes % 9.7 L Monocytes % 10.9 Eosinophils % 4.7 Basophils % 0.2 Nucleated Red Blood Cells % 0.0 Neutrophils # 6.2 Lymphocytes # 0.8 Monocytes # 0.9 Eosinophils # 0.4 Basophils # 0.0 Nucleated Red Blood Cells # 0.0 Test 08/14/16 11:56 Bedside Glucose 76 Medications Medications Current Medications Ondansetron HCl (Zofran Inj) 4 mg Q6 PRN IV N/V; Start 08/07/16 at 21:30 Miscellaneous Information 1 ea NOTE XX ; Start 08/07/16 at 22:00 Glucose (Glutose) 15 gm Q15M PRN PO DECREASED GLUCOSE; Start 08/07/16 at 22:00 Glucose (Glutose) 22.5 gm Q15M PRN PO DECREASED GLUCOSE; Start 08/07/16 at 22: 00 Dextrose (D50w Syringe) 25 ml Q15M PRN IV DECREASED GLUCOSE; Start 08/07/16 at 22:00 Dextrose (D50w Syringe) 50 ml Q15M PRN IV DECREASED GLUCOSE; Start 08/07/16 at 22:00 Glucagon (Glucagen) 1 mg Q15M PRN IM DECREASED GLUCOSE; Start 08/07/16 at 22:00 Glucose (Glutose) 15 gm Q15M PRN BUCCAL DECREASED GLUCOSE; Start 08/07/16 at 22 :00 Pantoprazole (Protonix Tab) 40 mg DAILY@06 PO Last administered on 08/14/16t 05 :14; Admin Dose 40 MG; Start 08/11/16 at 06:00 Diagnostic Test (Pha) (Accu-Chek) 1 02 XX ; Start 08/13/16 at 02:00 GREGORY GRIGSBY August 14, 2016 13:33
[2016-08-14] MEDS ORDERED: PANT40TA3 PO (15:54)
[2016-08-14] MEDS ORDERED: FER325 PO (15:54)
--- NOTE | 2016-08-14 16:03 | DS ---
Date/Time of Note Date/Time of Note DATE: 08/14/16 TIME: 15:56 Discharge Summary Admission/Discharge Info Admit Date/Time August 07, 2016 at 21:14 Discharge Date/Time Final Diagnosis 1. Acute symptomatic anemia due to GI bleeding, s/p PRBC transfusion, on iron supplement 2. Like chronic GI bleeding, s/p EGD and colonoscopy, unremarkable except hemorrhoid Patient Condition: Stable Procedures G.I. LAB PROCEDURE DATE OF PROCEDURE: PROCEDURE: Esophagogastroduodenoscopy with biopsies. BRIEF HISTORY AND INDICATIONS: The patient is being evaluated for gastrointestinal bleeding. PREMEDICATION: Monitored anesthesia care by anesthesiologist. SURGEON: Polo Hewitt MD. INSTRUMENT USED. Olympus panendoscope. TECHNIQUE: After informed consent, with the patient/relatives understanding the procedure, its indications, potential risks and complications, including but not limited to: allergic reaction, bleeding, perforation or infection, and after all pertinent questions were answered to the patients satisfaction, the patient/relatives signed witnessed informed consent. Following this, premedication was administered slowly IV push under careful cardiovascular and respiratory monitoring with pulse oximetry, automatic blood pressure and groundwater monitoring technician. Once the sedative effect was achieved the patient was place in the left lateral decubitus, the panendoscope was introduced and advanced under visual control. Careful examination of the upper gastrointestinal tract, both on insertion as well as withdrawal of the instrument disclosed the following findings: ESOPHAGUS: The distal esophagus shows significant erythema and edema of the mucosa. Superficial erosions are also present. A small hiatal hernia was present. STOMACH: Upon entrance to the stomach, air was insufflated, the gastric spence distended normally. The mucosa of the fundus, body and antrum of the stomach was carefully examined, shows erythema and edema of the mucosa of a moderate degree. Biopsies were obtained to rule out H. pylori infection. PYLORUS: The pylorus appears patent and within normal limits, with no evidence of gastric outlet obstruction. DUODENUM: The duodenal mucosa was carefully examined in the duodenal bulb as well as the second portion of the duodenum and appears unremarkable with no evidence of duodenitis, ulcer or neoplasm. The instrument was then withdrawn, the patient tolerated the procedure well and was transfer out of the endoscopy suite awake, and in good condition to continue recovery under observation IMPRESSION: 1. Erosive esophagitis, biopsies obtained. 2. Small hiatal hernia. 3. Gastritis, rule out Helicobacter pylori infection, biopsies were obtained. PLAN: The patient will be treated with PPIs. Pathology will be reviewed as soon as available. Further recommendation will depend on the patient's clinical course as well as review of biopsies. Dictated By: POLO HEWITT MS/MARTA G.I. LAB PROCEDURE DATE OF PROCEDURE: 08/12/2016 DATE: 08/12/2016 NAME OF PROCEDURE: Colonoscopy to cecum. SURGEON: Polo Hewitt MD. PREOPERATIVE DIAGNOSIS(ES): POSTOPERATIVE DIAGNOSIS(ES): HISTORY AND INDICATIONS: PREMEDICATION: Monitored anesthesia care by anesthesiologist. INSTRUMENT USED: Olympus colonoscope. PREPARATION: TECHNIQUE: After informed consent, with the patient/relatives understanding the procedure, its indications potential risks and complications, including but not limited to: allergic reaction, bleeding, perforation, infection, missed lesions and after all pertinent questions were answered to the patient's satisfaction, the patient/relatives signed the witnessed informed consent. Following this, premedication was administered slowly IV push by under careful cardiovascular and respiratory monitoring with pulse oximetry, automatic blood pressure and groundwater monitoring technician. Once the sedative effect was achieved, the patient was placed in the left lateral decubitus position, digital rectal examination was performed. The colonoscope was then introduced and advanced under visual control throughout all segments of the colon including: the rectum, sigmoid, descending colon, splenic flexure, transverse colon, hepatic flexure, ascending colon and finally reaching the cecum which was clearly identified by transillumination, finger indentation and the ileocecal valve. Careful examination of the mucosa of the lower gastrointestinal tract both on insertion as well as withdrawal of the instrument disclosed the following findings: RECTAL: No evidence of perirectal disease, no masses. COLONIC MUCOSA: The colonic mucosa is entirely unremarkable throughout. The ileocecal valve was clearly identified and appears unremarkable. The instrument was withdrawn reexamining the mucosa in detail. No additional abnormalities are noted with exception of moderate-sized internal hemorrhoids. The instrument was then withdrawn, the patient tolerated the procedure well and was transferred out of the Endoscopy Suite awake and in good condition to continue recovery under observation. IMPRESSION: Moderate sized internal hemorrhoids, otherwise normal colonic mucosa to cecum. RECOMMENDATIONS: The patient will be continued on present regimen. Diet will be advanced as tolerated, and further recommendations will depend on patient's clinical course. Annual Hemoccult stool testing is recommended and screening colonoscopy in 10 years is recommended. Dictated By: POLO HEWITT MS/NTS Conf#: [id number] DID#: [id number] Hx of Present Illness This is a 65 yo male who presented to ER c/o generalized weakness that has been progressively getting worse for past few days. Also reported dizziness/ lightheadedness. In ER, he was found to have a hgb of 4. He reported dark stool. Denied hematemesis or BRBPR. BP was as low as 77/55 and was tachycardic. Lab also showed a lactate of 9.5, hco3 15, BUN 38, glu 267, AG 21. . Hospital Course H/H were 4.1/14.1 with MCV 99.3%. Patient got PRBC transfusion that improves his H/H 9.3/29.3 on 08/14/2016. Patient will be on oral iron supplement and follow up with PCP. Esophagogastroduodenoscopy on 08/10/2016 revealed erosive esophagitis , esophageal biopsy compatible with early Mello's esophagus. Patient will be on protonix. Colonoscopy on 08/12/2016 only revealed internal hemorrhoids. Patient will follow up with Dr. Hewitt. Home Meds Active Scripts Pantoprazole* (Protonix*) 40 Mg Tablet., 40 MG PO DAILY for 30 Days, TAB Prov:KELSIE PATEL MD 08/14/16 Ferrous Sulfate* (Ferrous Sulfate*) 325 Mg Tabec, 325 MG PO BID for 30 Days, TAB Prov:KELSIE PATEL MD 08/14/16 Discontinued Reported Medications Aspirin* (Aspirin*) 325 Mg Tablet, 325 MG PO NEEDED, TAB 08/07/16 Follow-up Plan PCP in one week Dr. Hewitt in one week Primary Care Provider Care Physician No Primary Pending Labs Laboratory Tests Test 08/13/16 17:21 08/13/16 20:09 08/14/16 05:25 08/14/16 08:03 Bedside Glucose 98mg/dL (70-220) 118mg/dL (70-220) 93mg/dL (70-220) White Blood Count 8.410^3/ul (4.8-10.8) Red Blood Count 3.2110^6/ul (4.70-6.10) Hemoglobin 9.3g/dl (14.0-18.0) Hematocrit 29.3% (42.0-52.0) Mean Corpuscular Volume 91.3fl (82.0-101.0) Mean Corpuscular Hemoglobin 29.0pg (29.0-33.0) Mean Corpuscular Hemoglobin Concent 31.7g/dl (32.0-37.0) Red Cell Distribution Width 14.7% (11.5-14.5) Platelet Count 43545^3/UL (140-415) Mean Platelet Volume 10.3fl (7.4-10.4) Neutrophils % 73.4% (39.0-77.0) Lymphocytes % 9.7% (15.0-51.0) Monocytes % 10.9% (0.0-11.0) Eosinophils % 4.7% (0.0-7.0) Basophils % 0.2% (0.0-2.0) Nucleated Red Blood Cells % 0.0/100WBC (0.0-0.0) Neutrophils # 6.210^3/ul (1.6-7.5) Lymphocytes # 0.810^3/ul (0.8-2.9) Monocytes # 0.910^3/ul (0.3-0.9) Eosinophils # 0.410^3/ul (0.0-0.5) Basophils # 0.010^3/ul (0.0-0.1) Nucleated Red Blood Cells # 0.010^3/ul (0.0-0.0) Test 08/14/16 11:56 Bedside Glucose 76mg/dL (70-220) KELSIE PATEL MD August 14, 2016 16:03
== END 2016-08-14 17:05 | disposition home or self-care (01) | DRG 811 ==
LOC: E/R 17:17 → MS4 21:14 → E/R 08-08 03:54 → MS4 08-08 03:54 → PP2 08-13 00:10
PROVIDERS: ADMIT Internal Medicine; ATTEND Internal Medicine
PROC: 30233N1 Transfusion of Nonautologous Red Blood Cells into Peripheral Vein, Percutaneous Approach (ICD-10-PCS; 2016-08-07)
PROC: 0DJD8ZZ Inspection of Lower Intestinal Tract, Via Natural or Artificial Opening Endoscopic (ICD-10-PCS; 2016-08-12)
PROC: 0DB68ZX Excision of Stomach, Via Natural or Artificial Opening Endoscopic, Diagnostic (ICD-10-PCS; principal; 2016-08-12 18:00)
DX: D62 Acute posthemorrhagic anemia (principal); R57.1 Hypovolemic shock; E87.2 Acidosis; E13.10 Other specified diabetes mellitus with ketoacidosis without coma; E88.09 Other disorders of plasma-protein metabolism, not elsewhere classified; K22.10 Ulcer of esophagus without bleeding; K92.2 Gastrointestinal hemorrhage, unspecified; D50.0 Iron deficiency anemia secondary to blood loss (chronic); Z79.1 Long term (current) use of non-steroidal anti-inflammatories (NSAID); K44.9 Diaphragmatic hernia without obstruction or gangrene; K29.70 Gastritis, unspecified, without bleeding; K64.8 Other hemorrhoids; K22.70 Barrett's esophagus without dysplasia
CPT/HCPCS: 36415; 36430; 36600; 71010; 74176; 80048; 80053; 80061; 80306; 81003; 82270; 82306; 82728; 82803; 82962; 83036; 83540; 83605; 83690; 83735; 84100; 84439; 84443; 84484; 85014; 85018; 85025; 85610; 85730; 86850; 86900; 86901; 86920; 87040; 88305; 88312; 88313; 93005; 96365; 96366; 96368; 96375; 96376; C9113; J1815; J2354; J2916; J7030; J7040; P9016